=== PATIENT | female | born 1990 | race Caucasian/White ===

== ENCOUNTER 2017-06-22 00:30 | Inpatient (IN) | payer BC ==
--- NOTE | 2017-06-21 08:48 | PCM.LDHP ---
L&D History of Present Illness - General Date of Service: 06/21/17 Admit Problem/Dx: Admission Diagnosis/Problem Admission Diagnosis/Problem Source of Information: Patient History Limitations: Reports: No Limitations - History of Present Illness Introduction:: 27-year-old 000 BARB 06/28/17at 39 weeks today tomorrow at date of procedure 39 weeks and 1 day estimated gestational age. Breech presentation. Patient has had thorough counseling concerning possible attempted version with risk of comorbidity and comortality, versus proceeding with section. Ultrasound this morning confirmed breech presentation. horough conversation and discussion concerning version risk associated with same and induction risks associated with same and section with associated risk. Group B strep negative. A+. Improves with: Reports: None Worsens with: Reports: None Associated Symptoms: Reports: N Past Medical History : 1 Para: 0 (0000) H&P Review of Systems - Review of Systems: Review Of Systems: See Below General: Reports: No Symptoms HEENT: Reports: No Symptoms Pulmonary: Reports: No Symptoms Cardiovascular: Reports: No Symptoms Gastrointestinal: Reports: No Symptoms Genitourinary: Reports: No Symptoms Musculoskeletal: Reports: No Symptoms Skin: Reports: No Symptoms Psychiatric: Reports: No Symptoms Neurological: Reports: No Symptoms Hematologic/Lymphatic: Reports: No Symptoms Immunologic: Reports: No Symptoms L&D Exam - Exam Exam: See Below - OB Specific Fundal Height In cm: 39 Movement: Active Heart Tones: Present Heart Tones per Min: 135 - Exam General: Alert, Oriented HEENT: Conjunctiva Clear Neck: Supple, Trachea Midline Lungs: Clear to Auscultation, Normal Respiratory Effort Cardiovascular: Regular Rate, Regular Rhythm GI/Abdominal Exam: Normal Bowel Sounds, Soft, Non-Tender Genitourinary: Normal external exam, Normal bimanual exam, Normal speculum exam Extremities: Normal Inspection, Normal Range of Motion, Non-Tender, No Pedal Edema, Normal Capillary Refill Skin: Warm, Dry, Intact Neurological: Reflexes Equal Bilateral Psychiatric: Alert, Normal Affect, Normal Mood - Problem List (1) 39 weeks gestation of SNOMED Code(s): 36270935 ICD Code: Z3A.39 - 39 WEEKS GESTATION OF Status: Acute (2) Breech presentation SNOMED Code(s): 0188310 ICD Code: O32.1XX0 - MATERNAL CARE FOR BREECH PRESENTATION, UNSP Status: Acute Qualifiers: Fetus number: single or unspecified fetus Qualified Code(s): O32.1XX0 - Maternal care for breech presentation, not applicable or unspecified Problem List Initiated/Reviewed/Updated: No
[~2017-06-22 00:30] MED LIST: Citric Acid/Sodium Citrate Solution 30 ML Cup PO ONE; Metoclopramide 10 MG/2 ML SDV IVPUSH ONE; Sodium Chloride 0.9% 10 ML Syringe FLUSH PRN; ceFAZolin 2 GM in Premix Bag 1 BAG IV ONE
[2017-06-22] MEDS ORDERED: Metoclopramide 10 MG/2 ML SDV ONE (06:03)
[2017-06-22] MEDS ORDERED: Citric Acid/Sodium Citrate Solution 30 ML Cup ONE (06:03)
[2017-06-22] MEDS: Lactated Ringers 1,000 ML IV SCH ×3 (06:12→21:38)
[2017-06-22] MEDS ORDERED: Morphine PF 10 MG/10 ML SDV ONE (06:55)
[2017-06-22] MEDS ORDERED: Bupivacaine 0.5% 30 ML SDV ONE ×2 (07:00→07:01)
--- NOTE | 2017-06-22 07:00 | PCM.PREANE ---
Preanesthetic Assessment - Anesthesia/Transfusion/Family Hx Anesthesia History: Prior Anesthesia Without Reaction Family History of Anesthesia Reaction: No Transfusion History: No Prior Transfusion(s) - Review of Systems General: No Symptoms (preg), Night Sweats Pulmonary: No Symptoms Cardiovascular: No Symptoms Gastrointestinal: No Symptoms, Vomiting (gerd) Neurological: No Symptoms - Physical Assessment NPO Status Date: 06/21/17 NPO Status Time: 21:00 Pulse: 88 O2 Sat by Pulse Oximetry: 97 Respiratory Rate: 20 Blood Pressure: 107/70 Temperature: 97.6 F Height: 5 ft 7 in ASA Class: 2 Mental Status: Alert & Oriented x3 Airway Class: Mallampati = 1 Dentition: Reports: Normal Dentition Thyro-Mental Finger Breadths: 3 Mouth Opening Finger Breadths: 3 ROM/Head Extension: Full Lungs: Clear to Auscultation, Normal Respiratory Effort Cardiovascular: Regular Rate, Regular Rhythm - Lab Values: Laboratory Last Values WBC 9.25 K/mm3 (3.98-10.04) 06/22/17 05:50 RBC 3.79 M/mm3 (3.98-5.22) L 06/22/17 05:50 Hgb 12.2 gm/L (11.2-15.7) 06/22/17 05:50 Hct 35.2 % (34.1-44.9) 06/22/17 05:50 MCV 92.9 fl (79.4-94.8) 06/22/17 05:50 MCH 32.2 pg (25.6-32.2) 06/22/17 05:50 MCHC 34.7 g/dl (32.2-35.5) 06/22/17 05:50 RDW Std Deviation 40.8 fL (36.4-46.3) 06/22/17 05:50 Plt Count 151 K/mm3 (182-369) L 06/22/17 05:50 MPV 11.0 fl (9.4-12.3) 06/22/17 05:50 Neut % (Auto) 68.2 % (34.0-71.1) 06/22/17 05:50 Lymph % (Auto) 24.6 % (19.3-51.7) 06/22/17 05:50 Park % (Auto) 6.5 % (4.7-12.5) 06/22/17 05:50 Eos % (Auto) 0.5 (0.7-5.8) L 06/22/17 05:50 Baso % (Auto) 0.2 % (0.1-1.2) 06/22/17 05:50 Neut # (Auto) 6.30 K/mm3 (1.56-6.13) H 06/22/17 05:50 Lymph # (Auto) 2.28 K/mm3 (1.18-3.74) 06/22/17 05:50 Park # (Auto) 0.60 K/mm3 (0.24-0.36) H 06/22/17 05:50 Eos # (Auto) 0.05 K/mm3 (0.04-0.36) 06/22/17 05:50 Baso # (Auto) 0.02 K/mm3 (0.01-0.08) 06/22/17 05:50 Manual Slide Review Normal smear 06/22/17 05:50 Blood Type A POSITIVE 06/22/17 05:50 Gel Antibody Screen Negative 06/22/17 05:50 - Allergies Allergies/Adverse Reactions: Allergies Allergy/AdvReac Type Severity Reaction Status Date / Time No Known Allergies Allergy Verified 06/22/17 00:05 - Blood Blood Available: No - Acknowledgements Anesthesia Type Planned: Epidural Pt an Appropriate Candidate for the Planned Anesthesia: Yes Alternatives and Risks of Anesthesia Discussed w Pt/Guardian: Yes Pt/Guardian Understands and Agrees with Anesthesia Plan: Yes PreAnesthesia Questionnaire Cardiovascular History: Reports: None Respiratory History: Reports: None Gastrointestinal History: Reports: GERD : 1 (39 1 wek) Para: 0 - Past Surgical History HEENT Surgical History: Reports: Oral Surgery - History Comment History Comment: unisom for sleep and multivit - SUBSTANCE USE Smoking Status *Q: Never Smoker Tobacco Use Within Last Twelve Months: No Second Hand Smoke Exposure: No Days Per Week of Alcohol Use: 0 Recreational Drug Use History: No - CURRENT (IN HOUSE) MEDS Current Meds: Current Medications Lactated Ringer's (Ringers, Lactated) 1,000 mls @ 125 mls/hr IV ASDIRECTED AUBREY Last Admin: 06/22/17 06:12 Dose: 125 mls/hr Oxytocin 20 unit/ Lactated (Ringer's) 1,002 mls @ 500 mls/hr IV ASDIRECTED AUBREY Sodium Chloride (Saline Flush) 10 ml FLUSH ASDIRECTED PRN PRN Reason: Keep Vein Open Discontinued Medications Citric Acid/Sodium Citrate (Bicitra Solution) 30 ml PO ONETIME ONE Stop: 06/22/17 00:06 Last Admin: 06/22/17 06:11 Dose: 30 ml Citric Acid/Sodium Citrate (Bicitra Solution) Confirm Administered Dose 30 ml .ROUTE .STK-MED ONE Stop: 06/22/17 06:04 Last Admin: 06/22/17 06:12 Dose: Not Given Cefazolin Sodium/Dextrose 2 gm (/ Premix) 50 mls @ 100 mls/hr IV ONETIME ONE Stop: 06/22/17 00:34 Metoclopramide HCl (Reglan) 10 mg IVPUSH ONETIME ONE Stop: 06/22/17 00:06 Last Admin: 06/22/17 06:12 Dose: 10 mg Metoclopramide HCl (Reglan) Confirm Administered Dose 10 mg .ROUTE .STK-MED ONE Stop: 06/22/17 06:04 Last Admin: 06/22/17 06:12 Dose: Not Given Morphine Sulfate (Duramorph Pf) Confirm Administered Dose 10 mg .ROUTE .STK-MED ONE Stop: 06/22/17 06:56
[2017-06-22] MEDS ORDERED: fentaNYL 100 MCG/2 ML SDV ONE (07:02)
[2017-06-22] MEDS: fentaNYL 100 MCG/2 ML SDV EPIDUR PRN ×2 (07:23→18:54)
[2017-06-22] MEDS ORDERED: ePHEDrine 50 MG/ML SDV ONE ×2 (07:50→11:01)
[2017-06-22] MEDS ORDERED: Lactated Ringers 1,000 ML ONE ×2 (07:53→11:01)
[2017-06-22] MEDS ORDERED: Glycopyrrolate 0.2 MG/ML SDV ONE (07:55)
[2017-06-22] MEDS ORDERED: Nalbuphine 20 MG/1 ML Amp IVPUSH PRN (08:11)
[2017-06-22] MEDS ORDERED: Sodium Chloride 0.9% 10 ML Syringe FLUSH PRN (08:11)
[2017-06-22] MEDS ORDERED: Lidocaine 2% with EPINEPHrine 1:200,000 20 ML SDV ONE (08:12)
[2017-06-22] MEDS ORDERED: Misoprostol 25 MCG (1/4 of 100 MCG) Tab ONE (08:17)
[2017-06-22] MEDS: Misoprostol 25 MCG (1/4 of 100 MCG) Tab PO SCH ×3 (08:20→14:34)
--- NOTE | 2017-06-22 08:24 | PCM.SN ---
- Free Text/Narrative Note: At 0820 hrs. Cytotec placed cervix is closed, soft, long, posterior, vertex presentation now at -3 station
[2017-06-22] MEDS ORDERED: diphenhydrAMINE 50 MG/ML SDV IVPUSH PRN (08:25)
--- NOTE | 2017-06-22 09:00 | PCM.OPNOTE ---
- General Post-Op/Procedure Note Date of Surgery/Procedure: 06/22/17 Operative Procedure(s): External cephalic version Findings: in complete breech position with head on maternal left and spine on maternal right, heart rates 120s prior to procedure and 120s after procedure. Pre Op Diagnosis: Complete breech presentation at 39 weeks 1 day gestational age Post-Op Diagnosis: 39 weeks 1 day gestational age with successful cephalic version and infant in vertex presentation Anesthesia Technique: Epidural Primary Surgeon: Remi Lee Anesthesia Provider: Yayo Campuzano Tunneling Machine Operator: Ez Regalado Reason Tunneling Machine Operator Was Necessary: Standby assist for possible emergent section Role of Tunneling Machine Operator: Standby assistance for possible emergent section Pathology: None Fluid Replacement, Intraop: 2,000 Output, Urine Amount: 0 (Voided prior to procedure) EBL in mLs: 0 Complications: None Condition: Good Free Text/Narrative:: Procedure in detail: The patient was seen in the preoperative holding area and the risks, benefits and alternatives were again discussed with the patient and consents were reviewed. Patient was given an epidural for anesthesia. She was taken back to the operating room and placed in dorsal supine position with a left lateral tilt. heart tones were checked and they were in the 120s. An ultrasound was used to check position and it was noted that the infant was in complete breech position with head towards the maternal left and spine on maternal right. Lubricating jelly was applied over the entirety of the abdomen. The pelvis was then elevated out of the maternal pelvis using pressure just above the pubic symphysis. After the fetus was elevated out of the maternal pelvis pressure was applied behind the head to have the fetus rotated in a clockwise fashion. Pressure was applied for approximately 45 seconds and the heart tones were checked and noted to be in the 120s. Ultrasound was used to check for position and was found to be in vertex presentation. The cervix was checked and she was found to be closed/thick/floating. The head was unable to be palpated during cervical exam and ultrasound was used to reconfirm presentation and she was in vertex presentation. Patient was transported back to labor and delivery for induction of labor with plan to use Cytotec for initial induction agent. Anticipate vaginal delivery unless otherwise indicated.
[2017-06-22] MEDS ORDERED: Misoprostol 25 MCG (1/4 of 100 MCG) Tab VAG ONE (17:46)
[2017-06-22] MEDS: Bupivacaine/fentaNYL/NS 100 ML Bag EPIDUR SCH (18:53)
--- NOTE | 2017-06-22 20:51 | PCM.SN ---
- Free Text/Narrative Note: Bedside ultrasound performed showed fetus in vertex presentation. Cervical exam performed and cervical exam was 2 cm/80%/-2/soft/anterior. heart rate: 150s with moderate variability, positive accelerations, no decelerations Tocometry: Regular every 2 minutes Plan to transition to Pitocin for augmentation of labor once contractions have spaced out to every 3-5 minutes. Patient with epidural in place and working well. Anticipate vaginal delivery unless otherwise indicated. Remi Lee M.D. 8:51 PM 06/22/2017
[2017-06-23] MEDS: Ondansetron 4 MG/2 ML SDV IVPUSH PRN ×2 (01:24→06:44)
[2017-06-23] MEDS ORDERED: Morphine PF 10 MG/10 ML SDV ONE (01:47)
[2017-06-23] MEDS ORDERED: Lactated Ringers 0 ML ONE (01:47)
[2017-06-23] MEDS ORDERED: fentaNYL 100 MCG/2 ML SDV ONE (01:47)
[2017-06-23] MEDS ORDERED: ceFAZolin 1 GM Vial ONE (01:47)
[2017-06-23] MEDS ORDERED: Ondansetron 4 MG/2 ML SDV ONE (01:47)
[2017-06-23] MEDS ORDERED: Phenylephrine 1% 10 MG/ML SDV ONE (01:47)
[2017-06-23] MEDS ORDERED: Oxytocin 10 Units/1 ML SDV ONE (01:47)
[2017-06-23] MEDS ORDERED: Lidocaine 2% with EPINEPHrine 1:200,000 20 ML SDV ONE (01:47)
[2017-06-23] MEDS ORDERED: Ketorolac 30 MG/ML SDV ONE (01:47)
[2017-06-23] MEDS ORDERED: Bupivacaine 0.25% 10 ML SDV ONE (02:00)
[2017-06-23] MEDS ORDERED: Lidocaine 1.5% with EPINEPHrine 1:200,000 5 ML Amp ONE (02:00)
[2017-06-23] MEDS: Bupivacaine/fentaNYL/NS 100 ML Bag EPIDUR SCH ×2 (03:32→12:24)
[2017-06-23] MEDS: Lactated Ringers 1,000 ML IV SCH ×2 (03:38→12:24)
[2017-06-23] MEDS ORDERED: Famotidine 20 MG Tab PO ONE (04:15)
[2017-06-23] MEDS ORDERED: Oxytocin/Lactated Ringers 10 UNIT/1,000 ML BAG IV SCH ×2 (05:30→16:55)
[2017-06-23] MEDS ORDERED: Ondansetron 4 MG/2 ML SDV IVPUSH PRN (06:31)
--- NOTE | 2017-06-23 13:12 | PCM.PNLD ---
Labor Progress Note - VS & Meds Vital Signs: Last Vital Signs Temp 36.4 C 06/22/17 07:01 Pulse 88 06/22/17 07:01 Resp 20 06/22/17 07:01 BP 107/70 06/22/17 07:01 Pulse Ox 97 06/22/17 07:01 Active Medications: Current Medications Diphenhydramine HCl (Benadryl) 25 mg IVPUSH Q6H PRN PRN Reason: pruritis Famotidine (Pepcid) 20 mg PO BID AUBREY Fentanyl (Sublimaze) 100 mcg EPIDUR Q3H PRN PRN Reason: Pain Last Admin: 06/22/17 18:54 Dose: 100 mcg Fentanyl/Bupivacaine HCl (Fentanyl/Bupivacaine/Ns 2 Mcg-0.125% 100 Ml) 100 ml EPIDUR ASDIRECTED AUBREY Last Admin: 06/23/17 12:24 Dose: 100 ml Lactated Ringer's (Ringers, Lactated) 1,000 mls @ 125 mls/hr IV ASDIRECTED AUBREY Last Admin: 06/23/17 03:38 Dose: 125 mls/hr Oxytocin 20 unit/ Lactated (Ringer's) 1,002 mls @ 500 mls/hr IV ASDIRECTED AUBREY Lactated Ringer's (Ringers, Lactated) 1,000 mls @ 40 mls/hr IV ASDIRECTED AUBREY Last Admin: 06/23/17 12:24 Dose: 125 mls/hr Oxytocin/Lactated Ringer's (Pitocin In Lr 10 Units/1,000 Ml) 10 unit in 1,000 mls @ 12 mls/hr IV TITRATE AUBREY; 2 MUNITS/MIN PRN Reason: Protocol Last Admin: 06/23/17 06:51 Dose: 2 munits/min, 12 mls/hr Nalbuphine HCl (Nubain) 10 mg IVPUSH Q3H PRN PRN Reason: Pain Ondansetron HCl (Zofran) 4 mg IVPUSH ONETIME PRN PRN Reason: Nausea/Vomiting Last Admin: 06/23/17 06:44 Dose: 4 mg Ondansetron HCl (Zofran) 4 mg IVPUSH Q4H PRN PRN Reason: Nausea/Vomiting Sodium Chloride (Saline Flush) 10 ml FLUSH ASDIRECTED PRN PRN Reason: Keep Vein Open Sodium Chloride (Saline Flush) 10 ml FLUSH ASDIRECTED PRN PRN Reason: Keep Vein Open Discontinued Medications Bupivacaine HCl (Marcaine 0.5%) Confirm Administered Dose 30 ml .ROUTE .STK-MED ONE Stop: 06/22/17 07:01 Bupivacaine HCl (Marcaine 0.5%) Confirm Administered Dose 30 ml .ROUTE .STK-MED ONE Stop: 06/22/17 07:02 Cefazolin Sodium (Ancef) Confirm Administered Dose 2 gm .ROUTE .STK-MED ONE Stop: 06/23/17 01:48 Citric Acid/Sodium Citrate (Bicitra Solution) 30 ml PO ONETIME ONE Stop: 06/22/17 00:06 Last Admin: 06/22/17 06:11 Dose: 30 ml Citric Acid/Sodium Citrate (Bicitra Solution) Confirm Administered Dose 30 ml .ROUTE .STK-MED ONE Stop: 06/22/17 06:04 Last Admin: 06/22/17 06:12 Dose: Not Given Ephedrine Sulfate (Ephedrine Sulfate) Confirm Administered Dose 50 mg .ROUTE .STK-MED ONE Stop: 06/22/17 07:51 Ephedrine Sulfate (Ephedrine Sulfate) Confirm Administered Dose 50 mg .ROUTE .STK-MED ONE Stop: 06/22/17 11:02 Famotidine (Pepcid) 20 mg PO ONETIME ONE Stop: 06/23/17 04:16 Last Admin: 06/23/17 04:15 Dose: 20 mg Fentanyl (Sublimaze) Confirm Administered Dose 100 mcg .ROUTE .STK-MED ONE Stop: 06/22/17 07:03 Fentanyl (Sublimaze) Confirm Administered Dose 100 mcg .ROUTE .STK-MED ONE Stop: 06/23/17 01:48 Glycopyrrolate (Robinul) Confirm Administered Dose 0.2 mg .ROUTE .STK-MED ONE Stop: 06/22/17 07:56 Cefazolin Sodium/Dextrose 2 gm (/ Premix) 50 mls @ 100 mls/hr IV ONETIME ONE Stop: 06/22/17 00:34 Lactated Ringer's (Ringers, Lactated) Confirm Administered Dose 1,000 mls @ as directed .ROUTE .STK-MED ONE Stop: 06/22/17 07:54 Lactated Ringer's (Ringers, Lactated) Confirm Administered Dose 1,000 mls @ as directed .ROUTE .STK-MED ONE Stop: 06/22/17 11:02 Lactated Ringer's (Ringers, Lactated) Confirm Administered Dose 2,000 mls @ as directed .ROUTE .STK-MED ONE Stop: 06/23/17 01:48 Ketorolac Tromethamine (Toradol) Confirm Administered Dose 30 mg .ROUTE .STK- MED ONE Stop: 06/23/17 01:48 Lidocaine/Epinephrine (Xylocaine-Mpf 2%-Epi 1:200,000) Confirm Administered Dose 20 ml .ROUTE .STK-MED ONE Stop: 06/22/17 08:13 Lidocaine/Epinephrine (Xylocaine-Mpf 2%-Epi 1:200,000) Confirm Administered Dose 20 ml .ROUTE .STK-MED ONE Stop: 06/23/17 01:48 Metoclopramide HCl (Reglan) 10 mg IVPUSH ONETIME ONE Stop: 06/22/17 00:06 Last Admin: 06/22/17 06:12 Dose: 10 mg Metoclopramide HCl (Reglan) Confirm Administered Dose 10 mg .ROUTE .STK-MED ONE Stop: 06/22/17 06:04 Last Admin: 06/22/17 06:12 Dose: Not Given Misoprostol (Cytotec) 25 mcg PO Q3H AUBREY Stop: 06/22/17 14:16 Last Admin: 06/22/17 14:34 Dose: 25 mcg Misoprostol (Cytotec) Confirm Administered Dose 25 mcg .ROUTE .STK-MED ONE Stop: 06/22/17 08:18 Last Admin: 06/22/17 11:31 Dose: Not Given Misoprostol (Cytotec) 25 mcg VAG ONETIME ONE Stop: 06/22/17 17:47 Last Admin: 06/22/17 17:54 Dose: 25 mcg Morphine Sulfate (Duramorph Pf) Confirm Administered Dose 10 mg .ROUTE .STK-MED ONE Stop: 06/22/17 06:56 Morphine Sulfate (Duramorph Pf) Confirm Administered Dose 10 mg .ROUTE .STK-MED ONE Stop: 06/23/17 01:48 Ondansetron HCl (Zofran) Confirm Administered Dose 4 mg .ROUTE .STK-MED ONE Stop: 06/23/17 01:48 Oxytocin (Pitocin) Confirm Administered Dose 10 unit .ROUTE .STK-MED ONE Stop: 06/23/17 01:48 Phenylephrine HCl (Kwaku-Synephrine) Confirm Administered Dose 10 mg .ROUTE .STK- MED ONE Stop: 06/23/17 01:48 - Uterine Contractions Uterine Monitoring Mode: External [place] Contraction Frequency (min): 2-4 Contraction Duration (sec): 60 Contraction Intensity: Moderate to Strong Uterine Resting Tone: Soft - Monitoring Monitor Mode: Doppler/Auscultation Heart Rate (FHR) Baseline: 150 Heart Rate (FHR) Variability: Moderate (6-25 bmp) Accelerations: Present, 15x15 Decelerations: Variable Strip Review: Category II - Vaginal Exam Dilation (cm): 6 Effacement (Percent): 90 Station: -2 Cervical Position: Anterior - Labor Progress (Free Text) Labor Progress: Continues with good progress of labor. Artificial rupture of membranes performed with return of clear fluid at 1100. Continue on pitocin. Continue monitoring of . Anticipate vaginal delivery unless otherwise indicated.
--- NOTE | 2017-06-23 16:17 | PCM.DEL ---
L & D Note - General Info Date of Service: 06/23/17 Mother's Due Date: 06/28/17 - Delivery Note Labor: Augmented by Oxytocin Cervical Ripening Method: Oxytocin Delivery Outcome: Livebirth Delivery Method: Spontaneous Vaginal Delivery-Single Presentation: Right Occiput Anterior (GRAHAM) Nuchal Cord: Present Anesthesia Type: Epidural Amniotic Fluid Description: Meconium Stained Episiotomy Type: None Laceration: 3rd Degree (Partial, repaired with interrupted figure of 8 sutures with 2-0 vicryl and with 3-0 Vicryl in normal fashion, right labial abrasion repaired with 4-0 Vicryl) Suture type: Vicryl Suture size: 2-0 Placenta: Intact, Spontaneous Cord: 3 Vessels Estimated Blood Loss: 350 Resuscitation Needed: Yes : Suctioned, Bulb Syringe, Stimulated, Warmed, Navarro Used, Warmer Used Provider: Ez Regalado Score 1 min: 6 Score 5 min: 9 Second Stage Interventions: Reports: Pushing Effectively, Pushing, Knee Chest Position, Pushing, Pulls Own Legs Back Delivery Comments (Free Text/Narrative):: Stage I: Abiola Cannon was admitted for induction of labor following a successful external cephalic version performed on 06/22/2017. On admission her cervix was closed. She was GBS negative. She was started on Cytotec 25 mcg and received a total of 4 doses. After placement of the fourth dose she continued to contract regularly without augmentation until morning of 06/23/2017. She was given an epidural for anesthesia. She had artificial rupture of membranes with clear fluid. She progressed complete and pushing. During pushing she developed meconium stained fluid and the technical architect was notified. Stage II: On 06/23/2017 she had a normal vaginal delivery of a live female at 1524. Apgars of 6 & 9. Weight of 3150 g (6 lbs 15 oz). Length of 19 and 3/4 inches. There was a single nuchal cord that she delivered through. was delivered in GRAHAM position. The cord was doubly clamped and cut by father of baby. Infant was placed on mother's abdomen and then taken to warmer for further resuscitation. The delivery was attended by Dr. Campos due to meconium staining of the fluid. Stage III: She had a spontaneous delivery of an intact placenta in Casandra presentation. Three vessel cord. She was given pitocin and fundal massage. She had a partial third-degree midline laceration that was repaired with interrupted sutures of 2-0 Vicryl and the remainder of the laceration was repaired in normal fashion using 3-0 Vicryl. There was a right labial abrasion that was repaired in running subcuticular fashion using 4-0 Vicryl. There is old small left labial abrasion that was hemostatic and not repaired.. Mom and baby were stable to recovery. EBL of 350 mL. Remi Lee MD 4:16 PM 06/23/2017 - Patient Data Vitals - Most Recent: Last Vital Signs Temp 36.4 C 06/22/17 07:01 Pulse 88 06/22/17 07:01 Resp 20 06/22/17 07:01 BP 107/70 06/22/17 07:01 Pulse Ox 97 06/22/17 07:01 Weight - Most Recent: 73.482 kg Med Orders - Current: Current Medications Diphenhydramine HCl (Benadryl) 25 mg IVPUSH Q6H PRN PRN Reason: pruritis Famotidine (Pepcid) 20 mg PO BID AUBREY Fentanyl (Sublimaze) 100 mcg EPIDUR Q3H PRN PRN Reason: Pain Last Admin: 06/22/17 18:54 Dose: 100 mcg Fentanyl/Bupivacaine HCl (Fentanyl/Bupivacaine/Ns 2 Mcg-0.125% 100 Ml) 100 ml EPIDUR ASDIRECTED [facility] Last Admin: 06/23/17 12:24 Dose: 100 ml Lactated Ringer's (Ringers, Lactated) 1,000 mls @ 125 mls/hr IV ASDIRECTED AUBREY Last Admin: 06/23/17 03:38 Dose: 125 mls/hr Oxytocin 20 unit/ Lactated (Ringer's) 1,002 mls @ 500 mls/hr IV ASDIRECTED AUBREY Lactated Ringer's (Ringers, Lactated) 1,000 mls @ 40 mls/hr IV ASDIRECTED AUBREY Last Admin: 06/23/17 12:24 Dose: 125 mls/hr Oxytocin/Lactated Ringer's (Pitocin In Lr 10 Units/1,000 Ml) 10 unit in 1,000 mls @ 12 mls/hr IV TITRATE AUBREY; 2 MUNITS/MIN PRN Reason: Protocol Last Admin: 06/23/17 06:51 Dose: 2 munits/min, 12 mls/hr Nalbuphine HCl (Nubain) 10 mg IVPUSH Q3H PRN PRN Reason: Pain Ondansetron HCl (Zofran) 4 mg IVPUSH ONETIME PRN PRN Reason: Nausea/Vomiting Last Admin: 06/23/17 06:44 Dose: 4 mg Ondansetron HCl (Zofran) 4 mg IVPUSH Q4H PRN PRN Reason: Nausea/Vomiting Sodium Chloride (Saline Flush) 10 ml FLUSH ASDIRECTED PRN PRN Reason: Keep Vein Open Sodium Chloride (Saline Flush) 10 ml FLUSH ASDIRECTED PRN PRN Reason: Keep Vein Open Discontinued Medications Bupivacaine HCl (Marcaine 0.5%) Confirm Administered Dose 30 ml .ROUTE .STK-MED ONE Stop: 06/22/17 07:01 Bupivacaine HCl (Marcaine 0.5%) Confirm Administered Dose 30 ml .ROUTE .STK-MED ONE Stop: 06/22/17 07:02 Cefazolin Sodium (Ancef) Confirm Administered Dose 2 gm .ROUTE .STK-MED ONE Stop: 06/23/17 01:48 Citric Acid/Sodium Citrate (Bicitra Solution) 30 ml PO ONETIME ONE Stop: 06/22/17 00:06 Last Admin: 06/22/17 06:11 Dose: 30 ml Citric Acid/Sodium Citrate (Bicitra Solution) Confirm Administered Dose 30 ml .ROUTE .STK-MED ONE Stop: 06/22/17 06:04 Last Admin: 06/22/17 06:12 Dose: Not Given Ephedrine Sulfate (Ephedrine Sulfate) Confirm Administered Dose 50 mg .ROUTE .STK-MED ONE Stop: 06/22/17 07:51 Ephedrine Sulfate (Ephedrine Sulfate) Confirm Administered Dose 50 mg .ROUTE .STK-MED ONE Stop: 06/22/17 11:02 Famotidine (Pepcid) 20 mg PO ONETIME ONE Stop: 06/23/17 04:16 Last Admin: 06/23/17 04:15 Dose: 20 mg Fentanyl (Sublimaze) Confirm Administered Dose 100 mcg .ROUTE .STK-MED ONE Stop: 06/22/17 07:03 Fentanyl (Sublimaze) Confirm Administered Dose 100 mcg .ROUTE .STK-MED ONE Stop: 06/23/17 01:48 Glycopyrrolate (Robinul) Confirm Administered Dose 0.2 mg .ROUTE .STK-MED ONE Stop: 06/22/17 07:56 Cefazolin Sodium/Dextrose 2 gm (/ Premix) 50 mls @ 100 mls/hr IV ONETIME ONE Stop: 06/22/17 00:34 Lactated Ringer's (Ringers, Lactated) Confirm Administered Dose 1,000 mls @ as directed .ROUTE .STK-MED ONE Stop: 06/22/17 07:54 Lactated Ringer's (Ringers, Lactated) Confirm Administered Dose 1,000 mls @ as directed .ROUTE .STK-MED ONE Stop: 06/22/17 11:02 Lactated Ringer's (Ringers, Lactated) Confirm Administered Dose 2,000 mls @ as directed .ROUTE .STK-MED ONE Stop: 06/23/17 01:48 Ketorolac Tromethamine (Toradol) Confirm Administered Dose 30 mg .ROUTE .STK- MED ONE Stop: 06/23/17 01:48 Lidocaine/Epinephrine (Xylocaine-Mpf 2%-Epi 1:200,000) Confirm Administered Dose 20 ml .ROUTE .STK-MED ONE Stop: 06/22/17 08:13 Lidocaine/Epinephrine (Xylocaine-Mpf 2%-Epi 1:200,000) Confirm Administered Dose 20 ml .ROUTE .STK-MED ONE Stop: 06/23/17 01:48 Metoclopramide HCl (Reglan) 10 mg IVPUSH ONETIME ONE Stop: 06/22/17 00:06 Last Admin: 06/22/17 06:12 Dose: 10 mg Metoclopramide HCl (Reglan) Confirm Administered Dose 10 mg .ROUTE .STK-MED ONE Stop: 06/22/17 06:04 Last Admin: 06/22/17 06:12 Dose: Not Given Misoprostol (Cytotec) 25 mcg PO Q3H AUBREY Stop: 06/22/17 14:16 Last Admin: 06/22/17 14:34 Dose: 25 mcg Misoprostol (Cytotec) Confirm Administered Dose 25 mcg .ROUTE .STK-MED ONE Stop: 06/22/17 08:18 Last Admin: 06/22/17 11:31 Dose: Not Given Misoprostol (Cytotec) 25 mcg VAG ONETIME ONE Stop: 06/22/17 17:47 Last Admin: 06/22/17 17:54 Dose: 25 mcg Morphine Sulfate (Duramorph Pf) Confirm Administered Dose 10 mg .ROUTE .STK-MED ONE Stop: 06/22/17 06:56 Morphine Sulfate (Duramorph Pf) Confirm Administered Dose 10 mg .ROUTE .STK-MED ONE Stop: 06/23/17 01:48 Ondansetron HCl (Zofran) Confirm Administered Dose 4 mg .ROUTE .STK-MED ONE Stop: 06/23/17 01:48 Oxytocin (Pitocin) Confirm Administered Dose 10 unit .ROUTE .STK-MED ONE Stop: 06/23/17 01:48 Phenylephrine HCl (Kwaku-Synephrine) Confirm Administered Dose 10 mg .ROUTE .STK- MED ONE Stop: 06/23/17 01:48 - Problem List & Annotations (1) Vaginal delivery SNOMED Code(s): 787097876 Code(s): O80 - ENCOUNTER FOR FULL-TERM UNCOMPLICATED DELIVERY Status: Acute Current Visit: Yes (2) Third degree laceration of perineum during delivery, SNOMED Code(s): 832367360 Code(s): O70.20 - THIRD DEGREE PERINEAL LACERATION DURING DELIVERY, UNSP Status: Acute Current Visit: Yes (3) Labial abrasion, delivered, current hospitalization SNOMED Code(s): 567106991 Code(s): O71.82 - OTHER SPECIFIED TRAUMA TO PERINEUM AND VULVA Status: Acute Current Visit: Yes (4) Meconium stained amniotic fluid, delivered, current hospitalization SNOMED Code(s): 804426712 Code(s): O77.0 - LABOR AND DELIVERY COMPLICATED BY MECONIUM IN AMNIOTIC FLUID Status: Acute Current Visit: Yes (5) 39 weeks gestation of SNOMED Code(s): 28728847 Code(s): Z3A.39 - 39 WEEKS GESTATION OF Status: Acute Current Visit: Yes (6) Cephalic version antepartum SNOMED Code(s): 60388701, 08707591, 56609688 Code(s): VHS4717 - Status: Acute Current Visit: No - Problem List Review Problem List Initiated/Reviewed/Updated: Yes - My Orders Last 24 Hours: My Active Orders 06/23/17 05:30 Oxytocin/Lactated Ringers [Pitocin in LR 10 Units/1,000 ML] 10 unit in 1,000 ml IV TITRATE 06/23/17 06:31 Ondansetron [Zofran] 4 mg IVPUSH Q4H PRN 06/23/17 16:04 Patient Status Manage Transfer [TRANSFER] Routine 06/23/17 21:00 Famotidine [Pepcid] 20 mg PO BID - Plan Plan:: Admit to inpatient Continue Pitocin and lactated Ringer's until tolerating regular diet and per unit protocol Patient plans to breast-feed Monitor lochia Monitor vital signs Anticipate discharge on day #1 or 2
[2017-06-23] MEDS ORDERED: Acetaminophen 325 MG Tab PO PRN (16:55)
[2017-06-23] MEDS ORDERED: Hydrocortisone Acetate 25 MG Supp RECTAL PRN (16:55)
[2017-06-23] MEDS ORDERED: Docusate Sodium 100 MG Cap PO PRN (16:55)
[2017-06-23] MEDS ORDERED: Benzocaine/Menthol 20%-0.5% Spray 56 GM Canister TOP PRN (16:55)
[2017-06-23] MEDS ORDERED: Lactated Ringers 1,000 ML IV SCH (16:55)
[2017-06-23] MEDS ORDERED: Witch Hazel Medicated Pads 100/Jar TOP PRN (16:55)
[2017-06-23] MEDS ORDERED: Lanolin 100% Cream 7 GM Tube TOP PRN (16:55)
[2017-06-23] MEDS: Ibuprofen 600 MG Tab PO PRN ×2 (17:40→22:13)
[2017-06-23] MEDS ORDERED: Famotidine 20 MG Tab PO SCH (21:00)
--- NOTE | 2017-06-24 09:05 | PCM.SN ---
- Free Text/Narrative Note: Post Progress Note PPD # 1 Subjective: Doing well overall. Ambulating without difficulty. Lochia minimal. Voiding without difficulty. Tolerating regular diet without nausea or vomiting. Pain controlled with oral medications. Breast feeding with minimal difficulty. Objective: Vitals: Vital Signs - 24 hr 06/23/17 20:23 Temperature 36.6 C Pulse, 68 Peripheral Respiratory 16 Rate Blood Pressure 104/57 L O2 Sat by Pulse 97 Oximetry Physical Exam General: Alert and oriented, no acute distress Lungs: Clear to auscultation bilaterally Heart: Regular rate and rhythm Abdomen: Soft, minimal appropriate tenderness, non-distended, fundus midline, nontender, and below the umbilicus Extremities: No edema ASSESSMENT: 27-year-old female G 1 P 1001 s/p normal vaginal delivery PPD #1 complicated by successful version PLAN: Doing well Breast feeding with minimal difficulty. Assist as needed Lochia minimal. Continue to monitor for appropriate lochia. Continue routine care Anticipate discharge home tomorrow ASHLIE MerazII I have seen and evaluated the patient with the student. I agree with the above note. Remi Lee MD 9:04 AM 06/24/2017
[2017-06-24] MEDS: Ibuprofen 600 MG Tab PO PRN ×3 (09:15→22:23)
[2017-06-24] MEDS: Prenatal Multivitamin with Calcium/Folic Acid/Iron Tab PO SCH (09:15)
--- NOTE | 2017-06-24 14:54 | PCM48HPAN ---
Post Anesthesia Note - EVALUATION WITHIN 48HRS OF ANESTHETIC Vital Signs in Normal Range: Yes Patient Participated in Evaluation: Yes Respiratory Function Stable: Yes Airway Patent: Yes Cardiovascular Function Stable: Yes Hydration Status Stable: Yes Pain Control Satisfactory: Yes Nausea and Vomiting Control Satisfactory: Yes Mental Status Recovered: Yes
--- NOTE | 2017-06-25 09:02 | PCM.SN ---
- Free Text/Narrative Note: Post Progress Note PPD # 2 Subjective: Doing well overall. Ambulating without difficulty. Lochia minimal. Voiding without difficulty. Tolerating minimal amount of regular diet without nausea or vomiting. Passing flatus without bowel movement yet. Pain controlled with oral medications. Breast feeding with bottle supplementation reporting some difficulty with breast-feeding. Reports that she is developing blisters and sores around her nipples. Objective: Vitals: Vital Signs - 24 hr 06/24/17 06/25/17 20:40 04:10 Temperature 36.2 C 36.6 C Pulse, 74 74 Peripheral Respiratory 20 16 Rate Blood Pressure 100/51 L 99/55 L O2 Sat by Pulse 96 95 Oximetry Physical Exam General: Alert and oriented, no acute distress Lungs: Clear to auscultation bilaterally Heart: Regular rate and rhythm Abdomen: Soft, minimal appropriate tenderness, non-distended, fundus midline, nontender, and one finger breadth below the umbilicus Extremities: No edema ASSESSMENT: 27-year-old female G 1 P 1001 s/p normal vaginal delivery PPD #2 complicated by successful version PLAN: Doing well Breast feeding with bottle supplementation with some difficulty with feeding. Reports that she is working with the nurses. Assist as needed. Lochia minimal. Continue to monitor for appropriate lochia. Continue routine care Anticipate discharge home today Remi Lee MD 8:59 AM 06/25/2017
--- NOTE | 2017-06-25 09:08 | PCM.DCSUM1 ---
Discharge Summary - Hospital Course Free Text/Narrative:: Stage I: Abiola Cannon was admitted for induction of labor following a successful external cephalic version performed on 06/22/2017. On admission her cervix was closed. She was GBS negative. She was started on Cytotec 25 mcg and received a total of 4 doses. After placement of the fourth dose she continued to contract regularly without augmentation until morning of 06/23/2017. She was given an epidural for anesthesia. She had artificial rupture of membranes with clear fluid. She progressed complete and pushing. During pushing she developed meconium stained fluid and the biological inspector was notified. Stage II: On 06/23/2017 she had a normal vaginal delivery of a live female at 1524. Apgars of 6 & 9. Weight of 3150 g (6 lbs 15 oz). Length of 19 and 3/4 inches. There was a single nuchal cord that she delivered through. was delivered in GRAHAM position. The cord was doubly clamped and cut by father of baby. was placed on mother's abdomen and then taken to warmer for further resuscitation. The delivery was attended by Dr. Campos due to meconium staining of the fluid. Stage III: She had a spontaneous delivery of an intact placenta in [place] presentation. Three vessel cord. She was given pitocin and fundal massage. She had a partial third-degree midline laceration that was repaired with interrupted sutures of 2-0 Vicryl and the remainder of the laceration was repaired in normal fashion using 3-0 Vicryl. There was a right labial abrasion that was repaired in running subcuticular fashion using 4-0 Vicryl. There is old small left labial abrasion that was hemostatic and not repaired.. Mom and baby were stable to recovery. EBL of 350 mL. HPI Initial Comments: Stage I: Abiola Cannon was admitted for induction of labor following a successful external cephalic version performed on 06/22/2017. On admission her cervix was closed. She was GBS negative. She was started on Cytotec 25 mcg and received a total of 4 doses. After placement of the fourth dose she continued to contract regularly without augmentation until morning of 06/23/2017. She was given an epidural for anesthesia. She had artificial rupture of membranes with clear fluid. She progressed complete and pushing. During pushing she developed meconium stained fluid and the biological inspector was notified. Stage II: On 06/23/2017 she had a normal vaginal delivery of a live female infant at 1524. Apgars of 6 & 9. Weight of 3150 g (6 lbs 15 oz). Length of 19 and 3/4 inches. There was a single nuchal cord that she delivered through. Infant was delivered in GRAHAM position. The cord was doubly clamped and cut by father of baby. was placed on mother's abdomen and then taken to warmer for further resuscitation. The delivery was attended by Dr. Campos due to meconium staining of the fluid. Stage III: She had a spontaneous delivery of an intact placenta in [place]andra presentation. Three vessel cord. She was given pitocin and fundal massage. She had a partial third-degree midline laceration that was repaired with interrupted sutures of 2-0 Vicryl and the remainder of the laceration was repaired in normal fashion using 3-0 Vicryl. There was a right labial abrasion that was repaired in running subcuticular fashion using 4-0 Vicryl. There is old small left labial abrasion that was hemostatic and not repaired.. Mom and baby were stable to recovery. EBL of 350 mL. Brief History: Stage I: Abiola Cannon was admitted for induction of labor following a successful external cephalic version performed on 06/22/2017. On admission her cervix was closed. She was GBS negative. She was started on Cytotec 25 mcg and received a total of 4 doses. After placement of the fourth dose she continued to contract regularly without augmentation until morning of 06/23/2017. She was given an epidural for anesthesia. She had artificial rupture of membranes with clear fluid. She progressed complete and pushing. During pushing she developed meconium stained fluid and the biological inspector was notified. Stage II: On 06/23/2017 she had a normal vaginal delivery of a live female infant at 1524. Apgars of 6 & 9. Weight of 3150 g (6 lbs 15 oz). Length of 19 and 3/4 inches. There was a single nuchal cord that she delivered through. was delivered in GRAHAM position. The cord was doubly clamped and cut by father of baby. Infant was placed on mother's abdomen and then taken to warmer for further resuscitation. The delivery was attended by Dr. Campos due to meconium staining of the fluid. Stage III: She had a spontaneous delivery of an intact placenta in [place]andra presentation. Three vessel cord. She was given pitocin and fundal massage. She had a partial third-degree midline laceration that was repaired with interrupted sutures of 2-0 Vicryl and the remainder of the laceration was repaired in normal fashion using 3-0 Vicryl. There was a right labial abrasion that was repaired in running subcuticular fashion using 4-0 Vicryl. There is old small left labial abrasion that was hemostatic and not repaired.. Mom and baby were stable to recovery. EBL of 350 mL. - Discharge Data Discharge Date: 06/25/17 Discharge Disposition: Home, Self-Care 01 Condition: Good - Discharge Diagnosis/Problem(s) (1) Vaginal delivery SNOMED Code(s): 157256562 ICD Code: O80 - ENCOUNTER FOR FULL-TERM UNCOMPLICATED DELIVERY Status: Acute Current Visit: Yes (2) Third degree laceration of perineum during delivery, SNOMED Code(s): 773511951 ICD Code: O70.20 - THIRD DEGREE PERINEAL LACERATION DURING DELIVERY, UNSP Status: Acute Current Visit: Yes (3) Labial abrasion, delivered, current hospitalization SNOMED Code(s): 625129884 ICD Code: O71.82 - OTHER SPECIFIED TRAUMA TO PERINEUM AND VULVA Status: Acute Current Visit: Yes (4) Meconium stained amniotic fluid, delivered, current hospitalization SNOMED Code(s): 531510360 ICD Code: O77.0 - LABOR AND DELIVERY COMPLICATED BY MECONIUM IN AMNIOTIC FLUID Status: Acute Current Visit: Yes (5) 39 weeks gestation of SNOMED Code(s): 58311120 ICD Code: Z3A.39 - 39 WEEKS GESTATION OF Status: Acute Current Visit: Yes (6) Cephalic version antepartum SNOMED Code(s): 13861904, 47094721, 49387790 ICD Code: [id number] - Status: Acute Current Visit: No - Patient Summary/Data Operative Procedure(s) Performed: External cephalic version Complications: Partial third-degree laceration repaired with interrupted figure- of-eight sutures with 2-0 Vicryl Consults: None Hospital Course: Abiola Cannon was admitted for external cephalic version in the setting of breech presentation. She had a successful external cephalic version on 06/22/2017. She then was transferred to labor and delivery and started on an induction with Cytotec. On admission her cervix was closed. She was GBS negative. She was given a total of 4 doses of Cytotec. She was given an epidural for anesthesia. She had and artificial rupture of membranes with clear fluid. She progressed to complete and began pushing. During pushing she developed light meconium stained fluid. On 06/23/2017 she had a normal vaginal delivery of a live female infant at 1524. Apgars of 6 & 9. Weight of 3150 g (6 lbs. 15 oz.). Length of 19 3/4 inches. Her delivery was complicated by a partial third-degree laceration that was repaired with interrupted [id number] sutures with 2-0 Vicryl. Her course was uneventful. Her pain was well controlled and she had minimal lochia. She was ambulating, tolerating a regular diet and voiding normally. She was breast feeding and supplementing with bottle feeding. She was afebrile and her hematocrit was 35.2 on admission. She desired to be discharged home on the morning of PPD #2. Her blood type is A positive. - Patient Instructions Diet: Regular Diet as Tolerated Activity: As Tolerated Activity, Other: Nothing in the vagina for 6 weeks Driving: May Drive Today Showering/Bathing: May Shower Wound/Incision Care: Keep Operative Site/Wound Site Clean and Dry Notify Provider of: Fever, Increased Pain, Swelling and Redness, Drainage, Nausea and/or Vomiting Other/Special Instructions: Notify provider if having heavy vaginal bleeding enough to soak a pad in less than an hour for 3-4 hours - Discharge Plan Prescriptions/Med Rec: Magnesium Hydroxide [Milk of Magnesia] 30 ml PO BID PRN #1 bottle PRN Reason: Constipation Home Medications: Home Meds Acetaminophen [Tylenol] 650 mg PO Q6H PRN tablet 06/25/17 [Rx] Benzocaine/Menthol [Dermoplast Pain Relief [place]] 1 spray TOP ASDIRECTED PRN canister 06/25/17 [Rx] Docusate Sodium [Colace] 100 mg PO BID PRN cap 06/25/17 [Rx] Hydrocortisone Acetate [Anucort-HC] 25 mg RECTAL BID PRN supp 06/25/17 [Rx] Ibuprofen [IJD: Ibuprofen] 600 mg PO Q6H PRN tablet 06/25/17 [Rx] Lanolin [Lansinoh HPA] 1 applic TOP ASDIRECTED PRN tube 06/25/17 [Rx] Magnesium Hydroxide [Milk of Magnesia] 30 ml PO BID PRN #1 bottle 06/25/17 [Rx] Vit with Ca/FA/Iron [ Plus Iron] 1 each PO DAILY tablet [Rx] Patient Handouts: Exclusive , Home Care Instructions for Mom, Challenges and Solutions, Care of a Perineal Tear, Care After Vaginal Delivery Referrals: Ez Regalado MD [Primary Care Provider] - (Follow-up with Dr. Lee or Dr. Regalado in 2-3 weeks or earlier as needed for visit.) - Discharge Summary/Plan Comment DC Time >30 min.: No - Patient Data Vitals - Most Recent: Last Vital Signs Temp 36.6 C 06/25/17 04:10 Pulse 74 06/25/17 04:10 Resp 16 06/25/17 04:10 BP 99/55 L 06/25/17 04:10 Pulse Ox 95 06/25/17 04:10 Weight - Most Recent: 73.482 kg Med Orders - Current: Current Medications Acetaminophen (Tylenol) 650 mg PO Q6H PRN PRN Reason: mild pain or fever Benzocaine/Menthol (Dermoplast Pain Relief [place]) 0 gm TOP ASDIRECTED PRN PRN Reason: Perineal Comfort Measure Last Admin: 06/23/17 17:40 Dose: 1 canister Docusate Sodium (Colace) 100 mg PO BID PRN PRN Reason: Constipation Emollient Ointment (Lansinoh Hpa) 0 gm TOP ASDIRECTED PRN PRN Reason: Sore Nipples Last Admin: 06/25/17 00:12 Dose: 1 applic Hydrocortisone Acetate (Anucort-Hc) 25 mg RECTAL BID PRN PRN Reason: Hemorrhoid pain Lactated Ringer's (Ringers, Lactated) 1,000 mls @ 125 mls/hr IV ASDIRECTED AUBREY Oxytocin/Lactated Ringer's (Pitocin In Lr 10 Units/1,000 Ml) 10 unit in 1,000 mls @ 100 mls/hr IV TITRATE AUBREY PRN Reason: Protocol Ibuprofen (Motrin) 600 mg PO Q6H PRN PRN Reason: Mild pain or fever Last Admin: 06/24/17 22:23 Dose: 600 mg Prenat Multivit/Lyerly/Iron/Folic Ac ( Plus Iron) 1 each PO DAILY AUBREY Last Admin: 06/24/17 09:15 Dose: 1 each Witch Esther (Tucks) 1 pad TOP ASDIRECTED PRN PRN Reason: Hemorrhoid pain Last Admin: 06/23/17 17:40 Dose: 1 tub Discontinued Medications Bupivacaine HCl (Marcaine 0.5%) Confirm Administered Dose 30 ml .ROUTE .STK-MED ONE Stop: 06/22/17 07:01 Bupivacaine HCl (Marcaine 0.5%) Confirm Administered Dose 30 ml .ROUTE .STK-MED ONE Stop: 06/22/17 07:02 Bupivacaine HCl (Sensorcaine-Mpf 0.25%) 10 ml .ROUTE .STK-MED ONE Stop: 06/23/17 02:01 Cefazolin Sodium (Ancef) Confirm Administered Dose 2 gm .ROUTE .STK-MED ONE Stop: 06/23/17 01:48 Citric Acid/Sodium Citrate (Bicitra Solution) 30 ml PO ONETIME ONE Stop: 06/22/17 00:06 Last Admin: 06/22/17 06:11 Dose: 30 ml Citric Acid/Sodium Citrate (Bicitra Solution) Confirm Administered Dose 30 ml .ROUTE .STK-MED ONE Stop: 06/22/17 06:04 Last Admin: 06/22/17 06:12 Dose: Not Given Diphenhydramine HCl (Benadryl) 25 mg IVPUSH Q6H PRN PRN Reason: pruritis Ephedrine Sulfate (Ephedrine Sulfate) Confirm Administered Dose 50 mg .ROUTE .STK-MED ONE Stop: 06/22/17 07:51 Ephedrine Sulfate (Ephedrine Sulfate) Confirm Administered Dose 50 mg .ROUTE .STK-MED ONE Stop: 06/22/17 11:02 Famotidine (Pepcid) 20 mg PO BID AUBREY Famotidine (Pepcid) 20 mg PO ONETIME ONE Stop: 06/23/17 04:16 Last Admin: 06/23/17 04:15 Dose: 20 mg Fentanyl (Sublimaze) 100 mcg EPIDUR Q3H PRN PRN Reason: Pain Last Admin: 06/22/17 18:54 Dose: 100 mcg Fentanyl (Sublimaze) Confirm Administered Dose [address] ONE Stop: 06/22/17 07:03 Last Admin: 06/23/17 19:55 Dose: Not Given Fentanyl (Sublimaze) Confirm Administered Dose 100 mcg .ROUTE .[facility] ONE Stop: 06/23/17 01:48 Fentanyl/Bupivacaine HCl (Fentanyl/Bupivacaine/Ns 2 Mcg-0.125% 100 Ml) 100 ml EPIDUR ASDIRECTED [facility] Last Admin: 06/23/17 12:24 Dose: 100 ml Glycopyrrolate (Robinul) Confirm Administered Dose 0.2 mg .ROUTE .[facility] ONE Stop: 06/22/17 07:56 Cefazolin Sodium/Dextrose 2 gm (/ Premix) 50 mls @ 100 mls/hr IV ONETIME ONE Stop: 06/22/17 00:34 Last Admin: 06/23/17 19:55 Dose: Not Given Lactated Ringer's (Ringers, Lactated) 1,000 mls @ 125 mls/hr IV ASDIRECTED [facility] Last Admin: 06/23/17 03:38 Dose: 125 mls/hr Oxytocin 20 unit/ Lactated (Ringer's) 1,002 mls @ 500 mls/hr IV ASDIRECTED [facility] Lactated Ringer's (Ringers, Lactated) Confirm Administered Dose 1,000 mls @ as directed .ROUTE .[facility] ONE Stop: 06/22/17 07:54 Lactated Ringer's (Ringers, Lactated) 1,000 mls @ 40 mls/hr IV ASDIRECTED [facility] Last Admin: 06/23/17 12:24 Dose: 125 mls/hr Lactated Ringer's (Ringers, Lactated) Confirm Administered Dose 1,000 mls @ as directed .ROUTE .[facility] ONE Stop: 06/22/17 11:02 Lactated Ringer's (Ringers, Lactated) Confirm Administered Dose 0 mls @ as directed .ROUTE .[facility] ONE Stop: 06/23/17 01:48 Oxytocin/Lactated Ringer's (Pitocin In Lr 10 Units/1,000 Ml) 10 unit in 1,000 mls @ 12 mls/hr IV TITRATE AUBREY; 2 MUNITS/MIN PRN Reason: Protocol Last Admin: 06/23/17 06:51 Dose: 2 munits/min, 12 mls/hr Ketorolac Tromethamine (Toradol) Confirm Administered Dose 30 mg .ROUTE .STK- MED ONE Stop: 06/23/17 01:48 Lidocaine/Epinephrine (Xylocaine-Mpf 2%-Epi 1:200,000) Confirm Administered Dose 20 ml .ROUTE .STK-MED ONE Stop: 06/22/17 08:13 Lidocaine/Epinephrine (Xylocaine-Mpf 2%-Epi 1:200,000) Confirm Administered Dose 20 ml .ROUTE .STK-MED ONE Stop: 06/23/17 01:48 Lidocaine/Epinephrine (Xylocaine-Mpf 1.5% W/Epinephrine 1:200,000) 5 ml .ROUTE .STK-MED ONE Stop: 06/23/17 02:01 Metoclopramide HCl (Reglan) 10 mg IVPUSH ONETIME ONE Stop: 06/22/17 00:06 Last Admin: 06/22/17 06:12 Dose: 10 mg Metoclopramide HCl (Reglan) Confirm Administered Dose 10 mg .ROUTE .STK-MED ONE Stop: 06/22/17 06:04 Last Admin: 06/22/17 06:12 Dose: Not Given Misoprostol (Cytotec) 25 mcg PO Q3H AUBREY Stop: 06/22/17 14:16 Last Admin: 06/22/17 14:34 Dose: 25 mcg Misoprostol (Cytotec) Confirm Administered Dose 25 mcg .ROUTE .STK-MED ONE Stop: 06/22/17 08:18 Last Admin: 06/22/17 11:31 Dose: Not Given Misoprostol (Cytotec) 25 mcg VAG ONETIME ONE Stop: 06/22/17 17:47 Last Admin: 06/22/17 17:54 Dose: 25 mcg Morphine Sulfate (Duramorph Pf) Confirm Administered Dose 10 mg .ROUTE .STK-MED ONE Stop: 06/22/17 06:56 Morphine Sulfate (Duramorph Pf) Confirm Administered Dose 10 mg .ROUTE .STK-MED ONE Stop: 06/23/17 01:48 Nalbuphine HCl (Nubain) 10 mg IVPUSH Q3H PRN PRN Reason: Pain Ondansetron HCl (Zofran) 4 mg IVPUSH ONETIME PRN PRN Reason: Nausea/Vomiting Last Admin: 06/23/17 06:44 Dose: 4 mg Ondansetron HCl (Zofran) Confirm Administered Dose 4 mg .ROUTE .STK-MED ONE Stop: 06/23/17 01:48 Ondansetron HCl (Zofran) 4 mg IVPUSH Q4H PRN PRN Reason: Nausea/Vomiting Oxytocin (Pitocin) Confirm Administered Dose 10 unit .ROUTE .STK-MED ONE Stop: 06/23/17 01:48 Phenylephrine HCl (Kwaku-Synephrine) Confirm Administered Dose 10 mg .ROUTE .STK- MED ONE Stop: 06/23/17 01:48 Sodium Chloride (Saline Flush) 10 ml FLUSH ASDIRECTED PRN PRN Reason: Keep Vein Open Sodium Chloride (Saline Flush) 10 ml FLUSH ASDIRECTED PRN PRN Reason: Keep Vein Open *Q Meaningful Use (DIS) - VTE *Q VTE Criteria *Q: - Stroke *Q Stroke Criteria *Q: - AMI *Q AMI Criteria *Q:
[2017-06-25] MEDS: Prenatal Multivitamin with Calcium/Folic Acid/Iron Tab PO SCH (09:34)
== END 2017-06-25 10:48 | disposition home or self-care (01) | DRG 542 ==
LOC: JD.OB 05:37 → INTOOBSV 05:37 → JD.OB 05:37 → OBSVTOIN 06-23 15:24
PROVIDERS: ADMIT Obstetrics & Gynecology; ATTEND Obstetrics & Gynecology
PROC: 10S0XZZ Reposition Products of Conception, External Approach (ICD-10-PCS; 2017-06-22)
PROC: 3E0P7VZ Introduction of Hormone into Female Reproductive, Via Natural or Artificial Opening (ICD-10-PCS; 2017-06-22)
PROC: 10907ZC Drainage of Amniotic Fluid, Therapeutic from Products of Conception, Via Natural or Artificial Opening (ICD-10-PCS; 2017-06-22)
PROC: 00HU33Z Insertion of Infusion Device into Spinal Canal, Percutaneous Approach (ICD-10-PCS; 2017-06-22)
PROC: 3E0R3BZ Introduction of Anesthetic Agent into Spinal Canal, Percutaneous Approach (ICD-10-PCS; 2017-06-22)
PROC: 10E0XZZ Delivery of Products of Conception, External Approach (ICD-10-PCS; principal; 2017-06-23)
PROC: 0DQR0ZZ Repair Anal Sphincter, Open Approach (ICD-10-PCS; 2017-06-23)
DX: O32.1XX0 Maternal care for breech presentation, not applicable or unspecified (principal); O69.81X0 Labor and delivery complicated by cord around neck, without compression, not applicable or unspecified; O70.20 Third degree perineal laceration during delivery, unspecified; O77.0 Labor and delivery complicated by meconium in amniotic fluid; Z3A.39 39 weeks gestation of pregnancy; Z37.0 Single live birth
CPT/HCPCS: 36415; 51702; 59300; 59409; 85025; 86850; 86900; 86901; 94762; A9270-GY; J0690; J1885; J2270; J2370; J2405; J2590; J2765; J3010; J3490; J7120

== ENCOUNTER 2020-03-23 07:07 | Inpatient (IN) | payer BC ==
[~2020-03-23 07:07] MED LIST changes: +Bupivacaine 0.25% 10 ML SDV ONE; -Citric Acid/Sodium Citrate Solution 30 ML Cup PO ONE; -Metoclopramide 10 MG/2 ML SDV IVPUSH ONE; -Sodium Chloride 0.9% 10 ML Syringe FLUSH PRN; -ceFAZolin 2 GM in Premix Bag 1 BAG IV ONE
[2020-03-23] MEDS ORDERED: Ondansetron 4 MG/2 ML SDV IVPUSH PRN (07:18)
[2020-03-23] MEDS ORDERED: Sodium Chloride 0.9% 10 ML Syringe FLUSH PRN (07:18)
[2020-03-23] MEDS ORDERED: Nalbuphine 10 MG/1 ML Vial IVPUSH PRN (07:18)
[2020-03-23] MEDS ORDERED: Oxytocin/Lactated Ringers 10 UNIT/1,000 ML BAG IV SCH ×2 (07:30)
[2020-03-23] MEDS: Lactated Ringers 1,000 ML IV SCH ×3 (08:47→13:41)
--- NOTE | 2020-03-23 09:05 | PCM.LDHP ---
L&D History of Present Illness - General Date of Service: 03/23/20 Admit Problem/Dx: Patient Status Order with Admit Dx/Problem 03/23/20 07:18 Patient Status [ADT] Routine Admission Diagnosis/Problem Admission Diagnosis/Problem Source of Information: Patient History Limitations: Reports: No Limitations - History of Present Illness Introduction:: Abiola Cannon is a 30-year-old -0-0-1 female at 38 weeks 0 days gestational age (BARB 04/06/2020) by a 5-week ultrasound with Di/Di twins who presents for elective induction of labor. She has been doing well at this time and feels like her contractions have been slowing down over the last several weeks. She has been having [place] contractions that will occur about 8-12 times per day where they previously were occurring about 15-20 times per day. She denies any leaking of fluid or vaginal bleeding but is having an increased amount of mucus discharge. She feels like she is feeling both infants moving. Location, : Reports: Lower back, Pelvic Quality: Reports: Pressure Severity: Mild Improves with: Reports: None Worsens with: Reports: None Associated Symptoms: Denies: vaginal bleeding, vaginal discharge, vaginal fluid Present Illness Comments:: Abiola Cannon is a 30-year-old -0-0-1 female at 38 weeks 0 days (BARB 04/06/2020) by a 5-week ultrasound with Di/Di twins who presents for elective induction of labor. She has had routine care starting at [address] Regalado and myself, Dr. Lee. She has also been routinely evaluated by Dr. Singh for her high risk with the Di/Di twins. She received Tdap and flu vaccination on 01/19/2020. She was on aspirin 81 mg daily throughout her for preeclampsia prophylaxis. Her anatomy ultrasound was normal and there were no significant abnormalities. She was diagnosed with COVID-19 infection on 02/09/2020. She was diagnosed with gestational diabetes on 01/20/2020. She was monitored for her blood sugars throughout the remainder of her and she was able to keep good control of her gestational diabetes with use of diet and exercise. 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 She has had normal growth throughout the . There have not been any complications. The discordance on the most recent ultrasound on 03/15/2020 was 9%. Twin A was measuring at the 24th percentile and the twin B was measuring at the 47th percentile. * A1 gestational diabetes -patient diagnosed with gestational diabetes at 29 weeks gestational age. She has been able to control her blood sugars with diet and exercise throughout the entirety of the . We will plan to recheck for overt diabetes at 6 weeks after delivery. labs Blood type: A+ Antibody screen: Negative First trimester hematocrit/hemoglobin: 40.2%/14.1 on 08/12/2019 Platelets: 246 on 08/12/2019 Urine culture: Mixed nacho suggestive of contamination Rubella status: Immune Hepatitis B surface antigen: Negative RPR: Negative HIV: Negative Gonorrhea: Negative Chlamydia: Negative Anatomy ultrasound, twin A: Normal anatomy, no abnormalities, right posterior placenta, no previa, 24th percentile on most recent ultrasound on 03/15/2020 Anatomy ultrasound, twin B: Normal anatomy, no abnormalities, left anterior placenta, no previa, 47th percentile on most recent ultrasound on 03/15/2020 One hour glucose tolerance test: 143 Second trimester hematocrit/hemoglobin: 33.7%/11.2 on 01/14/2020 Platelets: 143 on 01/14/2020 3-hour glucose tolerance test: Fasting 91, 1 hour 164, 2-hour 180, 3-hour 154 GBS status: Negative - Related Data Allergies/Adverse Reactions: Allergies Allergy/AdvReac Type Severity Reaction Status Date / Time No Known Allergies Allergy Verified 06/22/17 00:05 Home Medications: Home Meds Vit with Ca/FA/Iron [ Plus Iron] 1 each PO DAILY tablet 06/25/17 [Rx] Past Medical History - Past Health History Medical/Surgical History: Denies Medical/Surgical History Cardiovascular History: Reports: None Respiratory History: Reports: None Gastrointestinal History: Reports: GERD 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: Other (See Below) (3rd degree laceration with first delivery) : 2 Para: 1 - Past Surgical History HEENT Surgical History: Reports: Oral Surgery - History Comment History Comment: unisom for sleep and multivit Social & Family History - Family History Family Medical History: No Pertinent Family History - Tobacco Use Tobacco Use Status *Q: Never Tobacco User Tobacco Use Within Last Twelve Months: No - Tobacco Core Measures Tobacco Use/Smoking Within Last 30 Days: No Smokeless Tobacco Use in Last 30 Days: No - Caffeine Use Caffeine Use: Reports: None - Alcohol Use Alcohol Use History: No - Recreational Drug Use Recreational Drug Use: No Drug Use in Last 12 Months: No - Living Situation & Occupation Living situation: Reports: , with Spouse, with Family H&P Review of Systems - Review of Systems: Review Of Systems: See Below General: Denies: Fever, Chills, Malaise, Weakness, Fatigue HEENT: Denies: Headaches, Rhinitis, Post Nasal Drip, Sinus Congestion, Sore Throat, Visual Changes Pulmonary: Denies: Shortness of Breath, Wheezing, Pleuritic Chest Pain, Cough Cardiovascular: Reports: Palpitations. Denies: Chest Pain, Dyspnea on Exertion, Orthopnea Gastrointestinal: Reports: Diarrhea. Denies: Abdominal Pain, Constipation, Na usea, Vomiting Genitourinary: Denies: Dysuria, Frequency, Burning, Pain, Urgency Musculoskeletal: Reports: Back Pain (and hip pain of ) Skin: Denies: Rash, Lesions Psychiatric: Denies: Depression, Anxiety L&D Exam - Exam Exam: See Below - Vital Signs Weight: 83.007 kg - OB Specific Contraction Duration (sec): 60-75 Contraction Frequency (min): 5-10 Contraction Intensity: Mild Movement: Active Heart Tones: Present Heart Tones per Min: 125 (Twin A 125, Twin B 130) Heart Rate (FHR) Variability: Moderate (6-25 bmp) (for twin A and twin B) Presentation: Vertex (for twin A and twin B confirmed by ultrasound) - Hernandez Score Hernandez Score Cervix Position: Posterior Hernandez Score Consistency: Soft Hernandez Score Effacement: 51-70% (60) Hernandez Score Dilation: 3-4 cm (3.5 cm) Hernandez Score 's Station: -3 Hernandez Score Total: 6 - Exam General: Alert, Oriented HEENT: Conjunctiva Clear, EOMI Neck: Supple, Trachea Midline Lungs: Clear to Auscultation, Normal Respiratory Effort Cardiovascular: Regular Rate, Regular Rhythm GI/Abdominal Exam: Soft, Non-Tender, No Distention. No: Guarding, Rigid, Rebound Genitourinary: Normal external exam Extremities: Normal Inspection, No Pedal Edema Skin: Warm, Dry, Intact Psychiatric: Alert, Normal Affect, Normal Mood - Patient Data Lab Results Last 24 hrs: Laboratory Results - last 24 hr 03/23/20 03/23/20 Range/Units 08:00 08:00 WBC 6.40 (3.98-10.04) K/mm3 RBC 3.63 L (3.98-5.22) M/mm3 Hgb 10.4 L (11.2-15.7) gm/dl Hct 32.5 L (34.1-44.9) % MCV 89.5 D (79.4-94.8) fl MCH 28.7 (25.6-32.2) pg MCHC 32.0 L (32.2-35.5) g/dl RDW Std Deviation 41.6 (36.4-46.3) fL Plt Count 128 L (182-369) K/mm3 MPV 12.4 H (9.4-12.3) fl Neut % (Auto) 69.7 (34.0-71.1) % Lymph % (Auto) 22.2 (19.3-51.7) % [place] % (Auto) 6.4 (4.7-12.5) % Eos % (Auto) 0.9 (0.7-5.8) Baso % (Auto) 0.2 (0.1-1.2) % Neut # (Auto) 4.46 (1.56-6.13) K/mm3 Lymph # (Auto) 1.42 (1.18-3.74) K/mm3 [place] # (Auto) 0.41 H (0.24-0.36) K/mm3 Eos # (Auto) 0.06 (0.04-0.36) K/mm3 Baso # (Auto) 0.01 (0.01-0.08) K/mm3 Blood Type A POSITIVE Result Diagrams: 03/23/20 08:00 - Problem List (1) 38 weeks gestation of SNOMED Code(s): 75159270 ICD Code: Z3A.38 - 38 WEEKS GESTATION OF Status: Acute Current Visit: Yes (2) Dichorionic diamniotic twin SNOMED Code(s): 780236640 ICD Code: O30.049 - TWIN , DICHORIONIC/DIAMNIOTIC, UNSP TRIMESTER Status: Acute Current Visit: Yes (3) Gestational diabetes mellitus, class A1 SNOMED Code(s): 14848621 ICD Code: O24.410 - GESTATIONAL DIABETES MELLITUS IN , DIET CONTROLLED Status: Acute Current Visit: Yes Problem List Initiated/Reviewed/Updated: Yes Orders Last 24hrs: Active Orders 24 hr Category Date Time Status Patient Status [ADT] Routine ADT 03/23/20 07:18 Active Activity as Tolerated [RC] PFP Care 03/23/20 07:18 Active Communication Order [RC] ASDIRECTED Care 03/23/20 07:18 Active Heart Tones [RC] ASDIRECTED Care 03/23/20 07:19 Active Non Stress Test [RC] PER UNIT ROUTINE Care 03/23/20 07:18 Active Notify Provider [RC] PFP Care 03/23/20 07:18 Active Notify Provider [RC] PRN Care 03/23/20 07:18 Active Peripheral IV Care [RC] . DIRECTED Care 03/23/20 07:19 Active Pump Management, Intrathecal [RC] ASDIRECTED Care 03/23/20 07:20 Active Urinary Catheter Assessment [RC] ASDIRECTED Care 03/23/20 07:18 Active Vital Signs [RC] PER UNIT ROUTINE Care 03/23/20 07:18 Active Regular Diet [DIET] Diet 03/23/20 Breakfast Active RAPID PLASMA REAGIN,RPR [CHEM] Routine Lab 03/23/20 08:00 Received TYPE AND SCREEN [BBK] Stat Lab 03/23/20 08:00 Results Lactated Ringers [Ringers, Lactated] 1,000 ml Med 03/23/20 07:30 Active IV ASDIRECTED Nalbuphine [Nubain] Med 03/23/20 07:18 Active 10 mg IVPUSH Q2H PRN Ondansetron [Zofran] Med 03/23/20 07:18 Active 4 mg IVPUSH Q4H PRN Oxytocin/Lactated Ringers [Pitocin in LR 10 Units/1,000 Med 03/23/20 07:30 Active ML] 10 unit in 1,000 ml IV .CONTINUOUS Oxytocin/Lactated Ringers [Pitocin in LR 10 Units/1,000 Med 03/23/20 07:30 Active ML] 10 unit in 1,000 ml IV TITRATE Sodium Chloride 0.9% [Saline Flush] Med 03/23/20 07:18 Active 10 ml FLUSH ASDIRECTED PRN Electronic Heart Tones Ext w TOCO [WOMSER] Oth 03/23/20 07:18 Ordered Routine Electronic Heart Tones Internal [WOMSER] Per Unit Oth 03/23/20 07:18 Ordered Routine Peripheral IV Insertion Adult [OM.PC] Routine Oth 03/23/20 07:18 Ordered Resuscitation Status Routine Resus Stat 03/23/20 07:18 Ordered Medication Orders Oxytocin/Lactated Ringer's (Pitocin In Lr 10 Units/1,000 Ml) 10 unit in 1,000 mls @ 12 mls/hr IV TITRATE AUBREY; Protocol Last Admin: 03/23/20 08:48 Dose: 2 munits/min, 12 mls/hr Documented by: DVORMAR Oxytocin/Lactated Ringer's (Pitocin In Lr 10 Units/1,000 Ml) 10 unit in 1,000 mls @ 500 mls/hr IV .CONTINUOUS AUBREY Lactated Ringer's (Ringers, Lactated) 1,000 mls @ 100 mls/hr IV ASDIRECTED AUBREY Last Admin: 03/23/20 08:47 Dose: 100 mls/hr Documented by: BECCA Nalbuphine HCl (Nubain) 10 mg IVPUSH Q2H PRN PRN Reason: Pain Ondansetron HCl (Zofran) 4 mg IVPUSH Q4H PRN PRN Reason: Nausea/Vomiting Sodium Chloride (Saline Flush) 10 ml FLUSH ASDIRECTED PRN PRN Reason: Keep Vein Open Assessment/Plan Comment:: Abiola Cannon is a 30-year-old -0-0-1 female at 38 weeks 0 days (BARB 04/06/2020) with Di/Di twins who presents for elective induction of labor with her complicated by di-/Di twins in vertex presentation for both twins and A1 gestational diabetes Refer to observation for elective induction of labor Start Pitocin for induction of labor Continuous monitoring Place IV and have Lactated Ringer's at 125 ml/hr May have small amounts of regular diet Activity as tolerated May have epidural as desired Plans to bottlefeed after delivery Check fingerstick blood glucose values now and every 4 hours to monitor for signs of maternal hyperglycemia which would indicate need for insulin management Anticipate vaginal delivery unless otherwise indicated We will plan for delivery in the operating room at time of delivery Remi Lee MD 9:34 AM 03/23/2020
[2020-03-23] MEDS ORDERED: Bupivacaine/fentaNYL/NS 100 ML Bag EPIDUR PRN (11:16)
[2020-03-23] MEDS ORDERED: diphenhydrAMINE 50 MG/ML SDV IVPUSH PRN (11:16)
[2020-03-23] MEDS ORDERED: fentaNYL 100 MCG/2 ML SDV EPIDUR PRN (11:16)
[2020-03-23] MEDS ORDERED: ePHEDrine 50 MG/ML SDV IVPUSH PRN (11:16)
--- NOTE | 2020-03-23 11:22 | PCM.PREANE ---
Preanesthetic Assessment - Procedure Proposed Procedure: lani - Anesthesia/Transfusion/Family Hx Anesthesia History: Prior Anesthesia Without Reaction Family History of Anesthesia Reaction: No Transfusion History: No Prior Transfusion(s) - Review of Systems General: No Symptoms Pulmonary: Shortness of Breath () Cardiovascular: Palpitations (racing heart beat prn- checked out and its the twin babies) Gastrointestinal: Diarrhea (last week -diarrhea) Neurological: No Symptoms Other: Reports: Diabetes (gestational ), Anxiety (stopped lexapro after pregn) - Physical Assessment Vital Signs: Last Vital Signs Temp 97.8 F 03/23/20 07:18 Pulse 97 03/23/20 07:18 Resp 16 03/23/20 07:18 BP 115/76 03/23/20 07:18 Pulse Ox 96 03/23/20 07:18 Height: 5 ft 7 in Weight: 83.007 kg ASA Class: 2 Mental Status: Alert & Oriented x3 Airway Class: Mallampati = 1 Dentition: Reports: Normal Dentition Thyro-Mental Finger Breadths: 3 Mouth Opening Finger Breadths: 3 ROM/Head Extension: Full Lungs: Clear to Auscultation, Normal Respiratory Effort Cardiovascular: Regular Rate, Regular Rhythm - Lab Values: Laboratory Last Values WBC 6.40 K/mm3 (3.98-10.04) 03/23/20 08:00 RBC 3.63 M/mm3 (3.98-5.22) L 03/23/20 08:00 Hgb 10.4 gm/dl (11.2-15.7) L 03/23/20 08:00 Hct 32.5 % (34.1-44.9) L 03/23/20 08:00 MCV 89.5 fl (79.4-94.8) D 03/23/20 08:00 MCH 28.7 pg (25.6-32.2) 03/23/20 08:00 MCHC 32.0 g/dl (32.2-35.5) L 03/23/20 08:00 RDW Std Deviation 41.6 fL (36.4-46.3) 03/23/20 08:00 Plt Count 128 K/mm3 (182-369) L 03/23/20 08:00 MPV 12.4 fl (9.4-12.3) H 03/23/20 08:00 Neut % (Auto) 69.7 % (34.0-71.1) 03/23/20 08:00 Lymph % (Auto) 22.2 % (19.3-51.7) 03/23/20 08:00 [place] % (Auto) 6.4 % (4.7-12.5) 03/23/20 08:00 Eos % (Auto) 0.9 (0.7-5.8) 03/23/20 08:00 Baso % (Auto) 0.2 % (0.1-1.2) 03/23/20 08:00 Neut # (Auto) 4.46 K/mm3 (1.56-6.13) 03/23/20 08:00 Lymph # (Auto) 1.42 K/mm3 (1.18-3.74) 03/23/20 08:00 [place] # (Auto) 0.41 K/mm3 (0.24-0.36) H 03/23/20 08:00 Eos # (Auto) 0.06 K/mm3 (0.04-0.36) 03/23/20 08:00 Baso # (Auto) 0.01 K/mm3 (0.01-0.08) 03/23/20 08:00 POC Glucose 86 mg/dL (70-105) 03/23/20 08:22 Blood Type A POSITIVE 03/23/20 08:00 Gel Antibody Screen Negative 03/23/20 08:00 - Allergies Allergies/Adverse Reactions: Allergies Allergy/AdvReac Type Severity Reaction Status Date / Time No Known Allergies Allergy Verified 06/22/17 00:05 - Blood Blood Available: No - Acknowledgements Anesthesia Type Planned: Epidural Pt an Appropriate Candidate for the Planned Anesthesia: Yes Alternatives and Risks of Anesthesia Discussed w Pt/Guardian: Yes Pt/Guardian Understands and Agrees with Anesthesia Plan: Yes PreAnesthesia Questionnaire - Past Health History Medical/Surgical History: Denies Medical/Surgical History Cardiovascular History: Reports: None, Other (See Below) (heart racing throughout - drs say ok) Respiratory History: Reports: None Gastrointestinal History: Reports: GERD 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 (See Below) (3rd degree laceration with first delivery) : 2 Para: 1 Psychiatric History: Reports: Anxiety, Other (See Below) Other Psychiatric History: hx pp depression Endocrine/Metabolic History: Reports: Diabetes, Gestational - Infectious Disease History Infectious Disease History: Reports: Novel Coronavirus - Past Surgical History HEENT Surgical History: Reports: Oral Surgery - History Comment History Comment: unisom for sleep and multivit - SUBSTANCE USE Tobacco Use Status *Q: Never Tobacco User Tobacco Use Within Last Twelve Months: No Second Hand Smoke Exposure: No Days Per Week of Alcohol Use: 0 Recreational Drug Use History: No - HOME MEDS Home Medications: Home Meds Vit with Ca/FA/Iron [ Plus Iron] 1 each PO DAILY tablet 06/25/17 [Rx] - CURRENT (IN HOUSE) MEDS Current Meds: Current Medications Oxytocin/Lactated Ringer's (Pitocin In Lr 10 Units/1,000 Ml) 10 unit in 1,000 mls @ 12 mls/hr IV TITRATE AUBREY; Protocol Last Titration: 03/23/20 11:00 Dose: 10 munits/min, 60 mls/hr Documented by: Oxytocin/Lactated Ringer's (Pitocin In Lr 10 Units/1,000 Ml) 10 unit in 1,000 mls @ 500 mls/hr IV .CONTINUOUS AUBREY Lactated Ringer's (Ringers, Lactated) 1,000 mls @ 100 mls/hr IV ASDIRECTED AUBREY Last Admin: 03/23/20 08:47 Dose: 100 mls/hr Documented by: Nalbuphine HCl (Nubain) 10 mg IVPUSH Q2H PRN PRN Reason: Pain Ondansetron HCl (Zofran) 4 mg IVPUSH Q4H PRN PRN Reason: Nausea/Vomiting Sodium Chloride (Saline Flush) 10 ml FLUSH ASDIRECTED PRN PRN Reason: Keep Vein Open
--- NOTE | 2020-03-23 14:15 | PCM.PNLD ---
Labor Progress Note - VS & Meds Vital Signs: Last Vital Signs Temp 36.6 C 03/23/20 07:18 Pulse 97 03/23/20 07:18 Resp 16 03/23/20 07:18 BP 115/76 03/23/20 07:18 Pulse Ox 96 03/23/20 07:18 Active Medications: Current Medications Diphenhydramine HCl (Benadryl) 25 mg IVPUSH Q6H PRN PRN Reason: pruritis Ephedrine Sulfate (Ephedrine Sulfate) 5 mg IVPUSH ASDIRECTED PRN PRN Reason: Hypotension Fentanyl (Sublimaze) 100 mcg EPIDUR Q3H PRN PRN Reason: Pain Last Admin: 03/23/20 12:52 Dose: 100 mcg Documented by: Fentanyl/Bupivacaine HCl (Fentanyl/Bupivacaine/Ns 2 Mcg-0.125% 100 Ml) 100 ml EPIDUR ASDIRECTED PRN PRN Reason: Pain Last Admin: 03/23/20 12:51 Dose: 100 ml Documented by: Oxytocin/Lactated Ringer's (Pitocin In Lr 10 Units/1,000 Ml) 10 unit in 1,000 mls @ 12 mls/hr IV TITRATE AUBREY; Protocol Last Titration: 03/23/20 11:00 Dose: 10 munits/min, 60 mls/hr Documented by: Oxytocin/Lactated Ringer's (Pitocin In Lr 10 Units/1,000 Ml) 10 unit in 1,000 mls @ 500 mls/hr IV .CONTINUOUS AUBREY Lactated Ringer's (Ringers, Lactated) 1,000 mls @ 100 mls/hr IV ASDIRECTED AUBREY Last Admin: 03/23/20 13:41 Dose: 100 mls/hr Documented by: Nalbuphine HCl (Nubain) 10 mg IVPUSH Q2H PRN PRN Reason: Pain Ondansetron HCl (Zofran) 4 mg IVPUSH Q4H PRN PRN Reason: Nausea/Vomiting Sodium Chloride (Saline Flush) 10 ml FLUSH ASDIRECTED PRN PRN Reason: Keep Vein Open - Uterine Contractions Contraction Frequency (min): 2-3 Contraction Duration (sec): 60-75 Contraction Intensity: Moderate to Strong Uterine Resting Tone: Soft - Monitoring Monitor Mode: Doppler/Auscultation Heart Rate (FHR) Baseline: 130 (Twin A 130, Twin B 120) Heart Rate (FHR) Variability: Moderate (6-25 bmp) (for twin A and twin B) Accelerations: Present, 15x15 (for both Twin A and Twin B) Decelerations: None Strip Review: Category I (for twin A and twin B) - Vaginal Exam Dilation (cm): 6 Effacement (Percent): 90 Station: -2 Cervical Position: Posterior Sterile Vaginal Exam Performed By: Remi Lee Vaginal Exam Comment: Artificial rupture membranes performed with [place] with return of large amount of clear fluid. Both twin a and twin B tolerated procedure without difficulty. Mother tolerated procedure without difficulty. - Labor Progress (Free Text) Labor Progress: Abiola Cannon is a 30-year-old -0-0-1 at 38 weeks 0 days (BARB 04/06/2020) who is undergoing elective induction of labor in the setting of Di/Di twins Patient doing well at this time Patient making good progress with induction of labor with Pitocin Continue Pitocin for induction of labor Routine vitals Continuous monitoring of both twins Patient with epidural in place and working well for her at this time Twin A underwent artificial rupture membranes with return of large amount of clear fluid Anticipate vaginal delivery unless otherwise indicated We will continue to plan for delivery in the operating room Remi Lee MD 2:44 PM 03/23/2020
--- NOTE | 2020-03-23 18:41 | PCM.SN.2 ---
- Free Text/Narrative Note: 03/23/201838 in OR room 1. Dr Lee and OB nurses here. Called in to turn off epidural pump as she can't feel to push. Lucila Bustos
[2020-03-24] MEDS: Ibuprofen 600 MG Tab PO PRN ×4 (00:15→19:00)
[2020-03-24] MEDS ORDERED: Benzocaine/Menthol 20%-0.5% Spray 56 GM Canister TOP PRN ×2 (03:23→08:38)
[2020-03-24] MEDS ORDERED: Witch Hazel Medicated Pads 40/Jar TOP PRN ×2 (03:23→08:38)
--- NOTE | 2020-03-24 07:25 | PCM48HPAN ---
Post Anesthesia Note - EVALUATION WITHIN 48HRS OF ANESTHETIC Vital Signs in Normal Range: Yes Patient Participated in Evaluation: Yes Respiratory Function Stable: Yes Airway Patent: Yes Cardiovascular Function Stable: Yes Hydration Status Stable: Yes Pain Control Satisfactory: Yes Nausea and Vomiting Control Satisfactory: Yes Mental Status Recovered: Yes Vital Signs: Last Vital Signs Temp 36.6 C 03/23/20 07:18 Pulse 97 03/23/20 07:18 Resp 16 03/23/20 07:18 BP 115/76 03/23/20 07:18 Pulse Ox 96 03/23/20 07:18
[2020-03-24] MEDS ORDERED: Hydrocortisone Acetate 25 MG Supp RECTAL PRN (08:38)
[2020-03-24] MEDS ORDERED: Acetaminophen 325 MG Tab PO PRN (08:38)
[2020-03-24] MEDS ORDERED: Oxytocin/Lactated Ringers 10 UNIT/1,000 ML BAG IV SCH (08:38)
[2020-03-24] MEDS ORDERED: Magnesium Hydroxide 400 MG/5 ML Susp 30 ML Cup PO PRN (08:38)
--- NOTE | 2020-03-24 09:42 | PCM.DEL ---
L & D Note - General Info Date of Service: 03/23/20 Mother's Due Date: 04/06/20 - Delivery Note Labor: Augmented by ARM, Induced by Oxytocin Cervical Ripening Method: Oxytocin Delivery Outcome: Livebirth (x2) Infant Delivery Method: Spontaneous Vaginal Delivery-Twins Presentation: Vertex twin A, breech extraction delivery after arm presentation for twin B Nuchal Cord: Present (x1 for twin B, reduced after delivery of aftercoming head) Anesthesia Type: Epidural Amniotic Fluid Description: Clear (for both infants) Episiotomy Type: None Laceration: 2nd Degree (midline perineal laceration, repaired with 3-0 Vicryl) Suture type: Vicryl Suture size: 3-0 Placenta: Intact, Spontaneous Cord: 3 Vessels (x2) Estimated Blood Loss: 400 Second Stage Interventions: Reports: Pushing Effectively, Pushing, Stirrups/Leg Supports Delivery Comments (Free Text/Narrative):: Stage I: Abiola Cannon was admitted for elective induction of labor. On admission her cervix was dilated to 3.5 cm. She was GBS negative. She was started on Pitocin for induction of labor. She was given epidural seizure. She had artificial rupture membranes vaginal opening. presenting twins amniotic sac with return of large amount of clear fluid. She progressed to complete and was transferred to the operating room for delivery. Once in the operating room she began pushing. Stage II: On 03/23/2020 she had a normal vaginal delivery of twin A which was a live female infant at 19:33. Apgars of 9 & 9. Weight of 2510 g (5 lbs 8.5 oz). Length of 19.0 inches. There was no nuchal cord. Infant was delivered in GRAHAM position. The cord was doubly clamped and cut by father the . was placed on mother's abdomen initially and then taken to the warmer for additional resuscitation. After delivery of twin A, an evaluation was performed with bimanual exam as well as bedside ultrasound. Bedside ultrasound showed the was in vertex presentation. On bimanual exam the presenting part was the hand. Attempt was made to try to move the head into the presenting part but this was unsuccessful. Artificial rupture membranes was performed with return of large amount of clear fluid. Attempt was again made to re position infant into vertex presenting part but this was unsuccessful and the presenting part was a shoulder with an arm coming through the cervix. Decision was made to proceed with breech extraction delivery. The right leg and foot was able to be grasped and brought through the vaginal opening. The was then repositioned and the left leg was grasped and was able to be brought to the vaginal opening. The abdomen was then able to be delivered with the in the right sacral posterior position. The left arm delivered with the abdomen. The infant was then rotated in a counterclockwise manner and the right arm was able to be delivered. After delivery of the right arm the was elevated to extend the neck. The head was then flexed using the MauriceauSmellieVeit maneuver and the was able to be delivered. On 03/23/2020 she had a breech extraction vaginal delivery of a live male at 19:43. Apgars of 2 & 8. Weight of 3170 g (6 lbs 15.8 oz). Length of 20.0 inches. There was a single nuchal cord that was reduced after delivery of the after coming head. was delivered in right sacrum posterior position. The cord was doubly clamped and cut by myself, Dr. Lee. was taken to the warmer immediately after delivery for resuscitation by instrument worker, Dr. Gordon. Stage III: She had a spontaneous delivery of an intact placenta in Casandra presentation. Three vessel cord x2. She was given pitocin and fundal massage. She had a second-degree midline perineal laceration that was repaired with 3-0 Vicryl. Mom and babies were stable to recovery. EBL of 400 mL. Remi eLe MD 10:40 PM 03/23/2020 Induction Criteria - Hernandez Score Hernandez Score Dilation: 3-4 cm Hernandez Score Effacement: 60-70% Hernandez Score 's Station: -3 Hernandez Score Consistency: Medium Hernandez Score Cervix Position: Posterior Hernandez Score Total: 5 Hernandez Score Presenting Part: Reports: Cephalic - Induction Gestational Age >/= 39 wks: No Medical Indication: Dichorionic/diamniotic twins Estimated Pelvis: Reports: Adequate Reassuring Monitoring Strip: Yes Absence of Tachy Systole: Yes - Augmentation Estimated Pelvis: Reports: Adequate Weight Estimated:: Reports: AGA Reassuring Monitoring Strip: Yes Absence of Tachy Systole: Yes - General Info Date of Service: 03/23/20 - Patient Data Vitals - Most Recent: Last Vital Signs Temp 36.6 C 03/23/20 07:18 Pulse 97 03/23/20 07:18 Resp 16 03/23/20 07:18 BP 115/76 03/23/20 07:18 Pulse Ox 96 03/23/20 07:18 Weight - Most Recent: 83.007 kg I&O - Last 24 Hours: Intake & Output 03/23/20 03/24/20 03/24/20 22:59 06:59 14:59 Intake Total 1999 2699 Balance 1999 2699 Lab Results Last 24 Hours: Laboratory Results - last 24 hr 03/23/20 03/23/20 03/23/20 Range/Units 08:22 12:21 16:35 WBC (3.98-10.04) K/mm3 RBC (3.98-5.22) M/mm3 Hgb (11.2-15.7) gm/dl Hct (34.1-44.9) % MCV (79.4-94.8) fl MCH (25.6-32.2) pg MCHC (32.2-35.5) g/dl RDW Std Deviation (36.4-46.3) fL Plt Count (182-369) K/mm3 MPV (9.4-12.3) fl Neut % (Auto) (34.0-71.1) % Lymph % (Auto) (19.3-51.7) % [place] % (Auto) (4.7-12.5) % Eos % (Auto) (0.7-5.8) Baso % (Auto) (0.1-1.2) % Neut # (Auto) (1.56-6.13) K/mm3 Lymph # (Auto) (1.18-3.74) K/mm3 [place] # (Auto) (0.24-0.36) K/mm3 Eos # (Auto) (0.04-0.36) K/mm3 Baso # (Auto) (0.01-0.08) K/mm3 POC Glucose 86 91 69 L (70-105) mg/dL 03/24/20 03/24/20 Range/Units 05:03 06:11 WBC 9.62 (3.98-10.04) K/mm3 RBC 3.28 L (3.98-5.22) M/mm3 Hgb 9.4 L (11.2-15.7) gm/dl Hct 29.6 L (34.1-44.9) % MCV 90.2 (79.4-94.8) fl MCH 28.7 (25.6-32.2) pg MCHC 31.8 L (32.2-35.5) g/dl RDW Std Deviation 41.9 (36.4-46.3) fL Plt Count 103 L (182-369) K/mm3 MPV 12.1 (9.4-12.3) fl Neut % (Auto) 76.1 H (34.0-71.1) % Lymph % (Auto) 17.4 L (19.3-51.7) % [place] % (Auto) 5.8 (4.7-12.5) % Eos % (Auto) 0.4 L (0.7-5.8) Baso % (Auto) 0.1 (0.1-1.2) % Neut # (Auto) 7.32 H (1.56-6.13) K/mm3 Lymph # (Auto) 1.67 (1.18-3.74) K/mm3 [place] # (Auto) 0.56 H (0.24-0.36) K/mm3 Eos # (Auto) 0.04 (0.04-0.36) K/mm3 Baso # (Auto) 0.01 (0.01-0.08) K/mm3 POC Glucose 80 (70-105) mg/dL Med Orders - Current: Current Medications Acetaminophen (Tylenol) 650 mg PO Q6H PRN PRN Reason: mild pain or fever Benzocaine/Menthol (Dermoplast Pain Relief Bliss) 0 gm TOP ASDIRECTED PRN PRN Reason: Perineal Comfort Measure Docusate Sodium (Colace) 100 mg PO BID PRN PRN Reason: Constipation Ferrous Sulfate (Ferrous Sulfate) 324 mg PO WITHBREAKFAST AUBREY Hydrocortisone Acetate (Anucort-Hc) 25 mg RECTAL BID PRN PRN Reason: Hemorrhoid pain Oxytocin/Lactated Ringer's (Pitocin In Lr 10 Units/1,000 Ml) 10 unit in 1,000 mls @ 100 mls/hr IV TITRATE AUBREY; Protocol Ibuprofen (Motrin) 600 mg PO Q6H PRN PRN Reason: Mild pain or fever Magnesium Hydroxide (Milk Of Magnesia) 30 ml PO BEDTIME PRN PRN Reason: Constipation Prenat Multivit/[place]/Iron/Folic Ac ( Plus Iron) 1 each PO DAILY [facility] Kristine Santana (Tucks) 1 pad TOP ASDIRECTED PRN PRN Reason: Perineal Comfort Measure Discontinued Medications Benzocaine/Menthol (Dermoplast Pain Relief Bliss) 15 gm TOP ASDIRECTED PRN PRN Reason: Pain Last Admin: 03/24/20 06:12 Dose: 1 can Documented by: Diphenhydramine HCl (Benadryl) 25 mg IVPUSH Q6H PRN PRN Reason: pruritis Ephedrine Sulfate (Ephedrine Sulfate) 5 mg IVPUSH ASDIRECTED PRN PRN Reason: Hypotension Fentanyl (Sublimaze) 100 mcg EPIDUR Q3H PRN PRN Reason: Pain Last Admin: 03/23/20 12:52 Dose: 100 mcg Documented by: Fentanyl/Bupivacaine HCl (Fentanyl/Bupivacaine/Ns 2 Mcg-0.125% 100 Ml) 100 ml EPIDUR ASDIRECTED PRN PRN Reason: Pain Last Admin: 03/23/20 12:51 Dose: 100 ml Documented by: Oxytocin/Lactated Ringer's (Pitocin In Lr 10 Units/1,000 Ml) 10 unit in 1,000 mls @ 12 mls/hr IV TITRATE [facility]; Protocol Last Titration: 03/23/20 14:20 Dose: 5 munits/min, 30 mls/hr Documented by: Oxytocin/Lactated Ringer's (Pitocin In Lr 10 Units/1,000 Ml) 10 unit in 1,000 mls @ 500 mls/hr IV .CONTINUOUS AUBREY Lactated Ringer's (Ringers, Lactated) 1,000 mls @ 100 mls/hr IV ASDIRECTED AUBREY Last Admin: 03/23/20 13:41 Dose: 100 mls/hr Documented by: Ibuprofen (Motrin) 600 mg PO Q6H PRN PRN Reason: Pain Last Admin: 03/24/20 06:11 Dose: 600 mg Documented by: Nalbuphine HCl (Nubain) 10 mg IVPUSH Q2H PRN PRN Reason: Pain Ondansetron HCl (Zofran) 4 mg IVPUSH Q4H PRN PRN Reason: Nausea/Vomiting Sodium Chloride (Saline Flush) 10 ml FLUSH ASDIRECTED PRN PRN Reason: Keep Vein Open Witch Esther (Tucks) 1 pad TOP ASDIRECTED PRN PRN Reason: Pain Last Admin: 03/24/20 06:11 Dose: 1 jar Documented by: - Problem List & Annotations (1) 38 weeks gestation of SNOMED Code(s): 82271812 Code(s): Z3A.38 - 38 WEEKS GESTATION OF Status: Acute Current Visit: Yes (2) Dichorionic diamniotic twin SNOMED Code(s): 990804345 Code(s): O30.049 - TWIN , DICHORIONIC/DIAMNIOTIC, UNSP TRIMESTER Status: Acute Current Visit: Yes (3) Gestational diabetes mellitus, class A1 SNOMED Code(s): 30745099 Code(s): O24.410 - GESTATIONAL DIABETES MELLITUS IN , DIET CONTROLLED Status: Acute Current Visit: Yes (4) Breech extraction, delivered SNOMED Code(s): 284386666 Code(s): O64.1XX0 - OBSTRUCTED LABOR DUE TO BREECH PRESENTATION, UNSP Statu s: Acute Current Visit: Yes (5) Second degree perineal laceration during delivery SNOMED Code(s): 1901470 Code(s): O70.1 - SECOND DEGREE PERINEAL LACERATION DURING DELIVERY Status: Acute Current Visit: Yes (6) Vaginal delivery SNOMED Code(s): 595116884 Code(s): O80 - ENCOUNTER FOR FULL-TERM UNCOMPLICATED DELIVERY Status: Acute Current Visit: No - Problem List Review Problem List Initiated/Reviewed/Updated: Yes - My Orders Last 24 Hours: My Active Orders 03/24/20 Breakfast Regular Diet [DIET] 03/24/20 08:38 Acetaminophen [TylenoL] 650 mg PO Q6H PRN Benzocaine/Menthol [Dermoplast Pain Relief Bliss] See Dose Instructions TOP ASDIRECTED PRN Docusate Sodium [Colace] 100 mg PO BID PRN Hydrocortisone Acetate [Anucort-HC] 25 mg RECTAL BID PRN Ibuprofen [Motrin] 600 mg PO Q6H PRN Magnesium Hydroxide [Milk of Magnesia] 30 ml PO BEDTIME PRN Oxytocin/Lactated Ringers [Pitocin in LR 10 Units/1,000 ML] 10 unit in 1,000 ml IV TITRATE witch Esther [Tucks] 1 pad TOP ASDIRECTED PRN Heat Therapy [OM.PC] PRN 03/24/20 08:38 Patient Status [ADT] Routine Activity as Tolerated [RC] PER UNIT ROUTINE Notify Provider Vital Signs [RC] ASDIRECTED Vital Signs [RC] ASDIRECTED Assess Lochia [WOMSER] Per Unit Routine Assess Uterine Involution [WOMSER] Per Unit Routine Breast Pump [WOMSER] Per Unit Routine Ice Therapy [OM.PC] Per Unit Routine Medication Administration Instruction [OM.PC] Routine Perineal Care [OM.PC] Per Unit Routine Peripheral IV Discontinue [OM.PC] Routine Sitz Bath [OM.PC] Per Unit Routine 03/24/20 09:00 Vit with Ca/FA/Iron [ Plus Iron] 1 each PO DAILY 03/25/20 07:00 Ferrous Sulfate 324 mg PO WITHBREAKFAST 03/25/20 07:30 Blood Glucose Check, Bedside [RC] DAILY 03/25/20 08:38 Heat Therapy [OM.PC] PRN - Plan Plan:: Abiola Cannon is a 30-year-old -0-0-3 female status post of twin A and breech extraction of twin B, PPD #0 complicated by Di/Di twins and A1 gestational diabetes Admit to inpatient following [normal] [spontaneous] vaginal delivery of twin A in breech extraction delivery of twin B Continue Pitocin per unit protocol following delivery of placenta and lactated Ringer's until tolerating regular diet [Regular] diet Vitals per unit routine Ibuprofen and Tylenol for pain control Assist with bottlefeeding as needed Continue to monitor lochia Recheck CBC in a.m. of PPD #1 due to EBL of 400 mL Check fasting glucose in the morning of PPD #1 and #2 Anticipate discharge home on day #2 Delivery note with late entry after [employer] was not working on night of delivery. The delivery note entered was dictated at 10:40 PM on 03/23/2020. Remi Lee MD 1:13 PM 03/24/2020
[2020-03-24] MEDS: Docusate Sodium 100 MG Cap PO PRN ×2 (12:46→20:25)
[2020-03-24] MEDS: Prenatal Multivitamin with Calcium/Folic Acid/Iron Tab PO SCH (12:47)
--- NOTE | 2020-03-24 13:18 | PCM.SN.2 ---
- Free Text/Narrative Note: Post Progress Note PPD #1 Subjective: Doing well overall. Ambulating slowly and having some pain when she gets out of bed and with walking. Lochia minimal. Voiding without difficulty. Tolerating regular diet without nausea or vomiting. Pain controlled with oral medications. Reports that she is having some lower abdominal and pelvic pain as well as low back pain. The abdominal soreness is getting better with a heating pad. Bottlefeeding with minimal difficulty. Reports that she is not having any milk production at this time. Objective: Vitals: Vital Signs - 24 hr 03/24/20 03/24/20 05:00 08:16 Temperature 36.8 C 36.7 C Pulse, 78 77 Peripheral Respiratory 16 15 Rate Blood Pressure 106/59 L 104/61 O2 Sat by Pulse 97 99 Oximetry Physical Exam General: Alert and oriented, no acute distress Lungs: Clear to auscultation bilaterally Heart: Regular rate and rhythm Abdomen: Soft, minimal appropriate tenderness, non-distended, fundus midline, nontender, and 1 fingerbreadth above the umbilicus Extremities: No edema Laboratory Tests 03/23/20 03/23/20 03/23/20 Range/Units 08:00 08:00 08:22 WBC 6.40 (3.98-10.04) K/mm3 RBC 3.63 L (3.98-5.22) M/mm3 Hgb 10.4 L (11.2-15.7) gm/dl Hct 32.5 L (34.1-44.9) % MCV 89.5 D (79.4-94.8) fl MCH 28.7 (25.6-32.2) pg MCHC 32.0 L (32.2-35.5) g/dl RDW Std Deviation 41.6 (36.4-46.3) fL Plt Count 128 L (182-369) K/mm3 MPV 12.4 H (9.4-12.3) fl Neut % (Auto) 69.7 (34.0-71.1) % Lymph % (Auto) 22.2 (19.3-51.7) % [place] % (Auto) 6.4 (4.7-12.5) % Eos % (Auto) 0.9 (0.7-5.8) Baso % (Auto) 0.2 (0.1-1.2) % Neut # (Auto) 4.46 (1.56-6.13) K/mm3 Lymph # (Auto) 1.42 (1.18-3.74) K/mm3 [place] # (Auto) 0.41 H (0.24-0.36) K/mm3 Eos # (Auto) 0.06 (0.04-0.36) K/mm3 Baso # (Auto) 0.01 (0.01-0.08) K/mm3 POC Glucose 86 (70-105) mg/dL Blood Type A POSITIVE Gel Antibody Screen Negative 03/23/20 03/23/20 03/24/20 Range/Units 12:21 16:35 05:03 WBC (3.98-10.04) K/mm3 RBC (3.98-5.22) M/mm3 Hgb (11.2-15.7) gm/dl Hct (34.1-44.9) % MCV (79.4-94.8) fl MCH (25.6-32.2) pg MCHC (32.2-35.5) g/dl RDW Std Deviation (36.4-46.3) fL Plt Count (182-369) K/mm3 MPV (9.4-12.3) fl Neut % (Auto) (34.0-71.1) % Lymph % (Auto) (19.3-51.7) % [place] % (Auto) (4.7-12.5) % Eos % (Auto) (0.7-5.8) Baso % (Auto) (0.1-1.2) % Neut # (Auto) (1.56-6.13) K/mm3 Lymph # (Auto) (1.18-3.74) K/mm3 [place] # (Auto) (0.24-0.36) K/mm3 Eos # (Auto) (0.04-0.36) K/mm3 Baso # (Auto) (0.01-0.08) K/mm3 POC Glucose 91 69 L 80 (70-105) mg/dL Blood Type Gel Antibody Screen 03/24/20 Range/Units 06:11 WBC 9.62 (3.98-10.04) K/mm3 RBC 3.28 L (3.98-5.22) M/mm3 Hgb 9.4 L (11.2-15.7) gm/dl Hct 29.6 L (34.1-44.9) % MCV 90.2 (79.4-94.8) fl MCH 28.7 (25.6-32.2) pg MCHC 31.8 L (32.2-35.5) g/dl RDW Std Deviation 41.9 (36.4-46.3) fL Plt Count 103 L (182-369) K/mm3 MPV 12.1 (9.4-12.3) fl Neut % (Auto) 76.1 H (34.0-71.1) % Lymph % (Auto) 17.4 L (19.3-51.7) % [place] % (Auto) 5.8 (4.7-12.5) % Eos % (Auto) 0.4 L (0.7-5.8) Baso % (Auto) 0.1 (0.1-1.2) % Neut # (Auto) 7.32 H (1.56-6.13) K/mm3 Lymph # (Auto) 1.67 (1.18-3.74) K/mm3 [place] # (Auto) 0.56 H (0.24-0.36) K/mm3 Eos # (Auto) 0.04 (0.04-0.36) K/mm3 Baso # (Auto) 0.01 (0.01-0.08) K/mm3 POC Glucose (70-105) mg/dL Blood Type Gel Antibody Screen ASSESSMENT: 30-year-old female -0-0-3 s/p normal vaginal delivery of twin A and breech extraction delivery of twin B PPD #1, complicated by Di/Di twins and A1 gestational diabetes PLAN: Doing well overall. Having some pain with ambulation in the low abdomen and back. Recommend for her to continue to use ibuprofen and Tylenol for pain control Bottlefeeding with minimal difficulty. Assist as needed. Discussed with patient ways to reduce milk production. Lochia minimal. Continue to monitor for appropriate lochia. Continue routine care Fasting blood glucose this morning was 80. No evidence of impaired glucose tolerance at this time. We will plan to recheck in the morning of PPD #2. Patient's hemoglobin this morning was down to 9.4, she started at 10.4. H emoglobin drop appropriate for EBL from delivery Anticipate discharge home tomorrow Remi Lee MD 1:17 PM 03/24/2020
[2020-03-25] MEDS: Ibuprofen 600 MG Tab PO PRN (03:48)
[2020-03-25] MEDS ORDERED: Ferrous Sulfate 324 MG Tab.EC PO SCH (07:00)
[2020-03-25] MEDS: Prenatal Multivitamin with Calcium/Folic Acid/Iron Tab PO SCH (08:38)
--- NOTE | 2020-03-25 09:06 | PCM.SN.2 ---
- Free Text/Narrative Note: Post Progress Note PPD #2 Subjective: Doing well overall. Continues to be ambulating slowly but she feels like she is able to move more quickly today. Lochia minimal. Voiding without difficulty. Tolerating regular diet without nausea or vomiting. Pain controlled with oral medications. Reports that she is continuing to have some lower abdominal and pelvic pain as well as low back pain but it has improved significantly from yesterday. Bottlefeeding with minimal difficulty. Reports that she is not messer ving any milk production at this time. Objective: Vitals: Vital Signs - 24 hr 03/24/20 03/24/20 03/25/20 16:27 19:55 03:37 Temperature 37.0 C 36.7 C 36.4 C Pulse, 86 88 61 Peripheral Respiratory 15 15 15 Rate Blood Pressure 113/91 H 112/52 L 133/65 O2 Sat by Pulse 99 97 99 Oximetry 03/25/20 03:52 Temperature Pulse, Peripheral Respiratory Rate Blood Pressure 131/76 O2 Sat by Pulse Oximetry Physical Exam General: Alert and oriented, no acute distress Lungs: Clear to auscultation bilaterally Heart: Regular rate and rhythm Abdomen: Soft, minimal appropriate tenderness, non-distended, fundus midline, nontender, and at the umbilicus Extremities: No edema Laboratory Results - last 24 hr 03/23/20 03/25/20 Range/Units 08:00 05:55 POC Glucose 89 (70-105) mg/dL RPR Non-reactive (NONREACTIVE) ASSESSMENT: 30-year-old female -0-0-3 s/p normal vaginal delivery of twin A and breech extraction delivery of twin B PPD #2, complicated by Di/Di twins and A1 gestational diabetes PLAN: Doing well overall. Pain improving at this time and able to be controlled with Tylenol Bottlefeeding with minimal difficulty. Assist as needed. Discussed with patient ways to reduce milk production. Lochia minimal. Continue to monitor for appropriate lochia. Continue routine care Fasting blood glucose this morning was 89. No evidence of impaired glucose tolerance at this time. We will plan to have patient get a 2-hour glucose tolerance test at her 6-week visit to check for overt diabetes. Discharge home today Remi Lee MD 9:03 AM 03/25/2020
--- NOTE | 2020-03-25 09:15 | PCM.DCSUM1 ---
Discharge Summary - Hospital Course Free Text/Narrative:: - General Info Date of Service: 03/23/20 Mother's Due Date: 04/06/20 - Delivery Note Labor: Augmented by ARM, Induced by Oxytocin Cervical Ripening Method: Oxytocin Delivery Outcome: Livebirth (x2) Delivery Method: Spontaneous Vaginal Delivery-Twins Presentation: Vertex twin A, breech extraction delivery after arm presentation for twin B Nuchal Cord: Present (x1 for twin B, reduced after delivery of aftercoming head) Anesthesia Type: Epidural Amniotic Fluid Description: Clear (for both infants) Episiotomy Type: None Laceration: 2nd Degree (midline perineal laceration, repaired with 3-0 Vicryl) Suture type: Vicryl Suture size: 3-0 Placenta: Intact, Spontaneous Cord: 3 Vessels (x2) Estimated Blood Loss: 400 Second Stage Interventions: Reports: Pushing Effectively, Pushing, Stirrups/Leg Supports Delivery Comments (Free Text/Narrative):: Stage I: Abiola Cannon was admitted for elective induction of labor. On admission her cervix was dilated to 3.5 cm. She was GBS negative. She was started on Pitocin for induction of labor. She was given epidural seizure. She had artificial rupture membranes vaginal opening. presenting twins amniotic sac with return of large amount of clear fluid. She progressed to complete and was transferred to the operating room for delivery. Once in the operating room she began pushing. Stage II: On 03/23/2020 she had a normal vaginal delivery of twin A which was a live female infant at 19:33. Apgars of 9 & 9. Weight of 2510 g (5 lbs 8.5 oz). Length of 19.0 inches. There was no nuchal cord. Infant was delivered in GRAHAM position. The cord was doubly clamped and cut by father the . was placed on mother's abdomen initially and then taken to the warmer for additional resuscitation. After delivery of twin A, an evaluation was performed with bimanual exam as well as bedside ultrasound. Bedside ultrasound showed the was in vertex presentation. On bimanual exam the presenting part was the hand. Attempt was made to try to move the head into the presenting part but this was unsuccessful. Artificial rupture membranes was performed with return of large amount of clear fluid. Attempt was again made to re position infant into vertex presenting part but this was unsuccessful and the presenting part was a shoulder with an arm coming through the cervix. Decision was made to proceed with breech extraction delivery. The right leg and foot was able to be grasped and brought through the vaginal opening. The was then repositioned and the left leg was grasped and was able to be brought to the vaginal opening. The abdomen was then able to be delivered with the in the right sacral posterior position. The left arm delivered with the abdomen. The was then rotated in a counterclockwise manner and the right arm was able to be delivered. After delivery of the right arm the infant was elevated to extend the neck. The head was then flexed using the MauriceauSmellieVeit maneuver and the was able to be delivered. On 03/23/2020 she had a breech extraction vaginal delivery of a live male at 19:43. Apgars of 2 & 8. Weight of 3170 g (6 lbs 15.8 oz). Length of 20.0 inches. There was a single nuchal cord that was reduced after delivery of the after coming head. Infant was delivered in right sacrum posterior position. The cord was doubly clamped and cut by myself, Dr. Lee. Infant was taken to the warmer immediately after delivery for resuscitation by [employer], Dr. Gordon. Stage III: She had a spontaneous delivery of an intact placenta in Casandra presentation. Three vessel cord x2. She was given pitocin and fundal massage. She had a second-degree midline perineal laceration that was repaired with 3-0 Vicryl. Mom and babies were stable to recovery. EBL of 400 mL. Diagnosis: Stroke: No - Discharge Data Discharge Date: 03/25/20 Discharge Disposition: Home, Self-Care 01 Condition: Good - Referral to Home Health Primary Care Physician: Ez Regalado MD - Discharge Diagnosis/Problem(s) (1) 38 weeks gestation of SNOMED Code(s): 97179743 ICD Code: Z3A.38 - 38 WEEKS GESTATION OF Status: Acute Current Visit: Yes (2) Dichorionic diamniotic twin SNOMED Code(s): 972028235 ICD Code: O30.049 - TWIN , DICHORIONIC/DIAMNIOTIC, UNSP TRIMESTER Status: Acute Current Visit: Yes (3) Gestational diabetes mellitus, class A1 SNOMED Code(s): 81798978 ICD Code: O24.410 - GESTATIONAL DIABETES MELLITUS IN , DIET CONTROLLED Status: Acute Current Visit: Yes (4) Breech extraction, delivered SNOMED Code(s): 699224829 ICD Code: O64.1XX0 - OBSTRUCTED LABOR DUE TO BREECH PRESENTATION, UNSP Status: Acute Current Visit: Yes (5) Second degree perineal laceration during delivery SNOMED Code(s): 8053161 ICD Code: O70.1 - SECOND DEGREE PERINEAL LACERATION DURING DELIVERY Status: Acute Current Visit: Yes (6) Vaginal delivery SNOMED Code(s): 530264459 ICD Code: O80 - ENCOUNTER FOR FULL-TERM UNCOMPLICATED DELIVERY Status: Acute Current Visit: No - Patient Summary/Data Complications: None Consults: None Hospital Course: Abiola Cannon was admitted for elective induction of labor. On admission her cervix was dilated to 3.5 cm. She was GBS negative. She was given pitocin for induction of labor. She was given an epidural for anesthesia. She had artific ial rupture of membranes of the presenting twin amniotic sac with large amount of clear fluid. She progressed to complete and was transferred to the operating room for delivery. Once she was in the operating room she began pushing. On 03/23/2020 she had a normal vaginal delivery of twin A of a live female infant at 19:33. Apgars of 9 and 9. Weight of 2510 g (5 pounds 8.5 ounces). After delivery of twin A evaluation was performed and the presenting part was found to be the shoulder and arm. Artificial rupture membranes was performed with return of large amount of clear fluid. Attempt was made to reposition the infant with the head as the presenting part but was unsuccessful. A breech extraction was performed. Please see delivery note for full details. On 03/23/2020 she had a breech extraction vaginal delivery of twin B of a live male infant at 19:43. Apgars of 2 and 8. weight of 3170 g (6 pounds 15.8 ounces). Her course was uneventful. Her pain was well controlled and she had minimal lochia. She was ambulating, tolerating a regular diet and voiding normally. She was bottlefeeding with minimal difficulty. She was not having any milk production prior to discharge. She was afebrile and her hematocrit was 29.6 on PPD #1. She desired to be discharged home on the morning of PPD #2. Her blood type is A+. - Patient Instructions Diet: Regular Diet as Tolerated Activity: Apply Ice, As Tolerated Activity, Other: Nothing in the vagina for 6 weeks Driving: May Drive Today Showering/Bathing: May Shower Notify Provider of: Fever, Increased Pain, Swelling and Redness, Drainage, N ausea and/or Vomiting Other/Special Instructions: Please contact your physician's office if you have heavy vaginal bleeding enough to soak a pad in less than an hour for several hours. Monitor for any signs of an infection in the breasts with severe pain or redness of the breast. - Discharge Plan *PRESCRIPTION DRUG MONITORING PROGRAM REVIEWED*: Not Applicable *COPY OF PRESCRIPTION DRUG MONITORING REPORT IN PATIENT CHEY: Not Applicable Home Medications: Home Meds Vit with Ca/FA/Iron [ Plus Iron] 1 each PO DAILY tablet 06/25/17 [Rx] Famotidine [Pepcid AC] 10 mg PO DAILY 03/23/20 [History] Folic Acid 1 mg PO DAILY 03/23/20 [History] Acetaminophen [Tylenol] 650 mg PO Q6H PRN tablet 03/25/20 [Rx] Benzocaine/Menthol [Dermoplast [facility] [place]] 1 spray TOP ASDIRECTED PRN canister 03/25/20 [Rx] Docusate Sodium [Colace] 100 mg PO BID PRN cap 03/25/20 [Rx] Ferrous Sulfate 324 mg PO WITHBREAKFAST tab.ec 03/25/20 [Rx] Hydrocortisone Acetate [Anucort-HC] 25 mg RECTAL BID PRN supp 03/25/20 [Rx] Ibuprofen [Motrin] 600 mg PO Q6H PRN tablet 03/25/20 [Rx] witch Esther [Tucks] 1 pad TOP ASDIRECTED PRN pad 03/25/20 [Rx] Patient Handouts: Care of a Perineal Tear, Care After Vaginal Delivery Referrals: Remi Lee MD [Physician] - (Please follow-up in 2 weeks for routine visit or earlier as needed.) - Discharge Summary/Plan Comment DC Time >30 min.: No - Patient Data Vitals - Most Recent: Last Vital Signs Temp 36.4 C 03/25/20 03:37 Pulse 61 03/25/20 03:37 Resp 15 03/25/20 03:37 BP 131/76 03/25/20 03:52 Pulse Ox 99 03/25/20 03:37 Weight - Most Recent: 83.007 kg Lab Results - Last 24 hrs: Laboratory Results - last 24 hr 03/23/20 03/25/20 Range/Units 08:00 05:55 POC Glucose 89 (70-105) mg/dL RPR Non-reactive (NONREACTIVE) Med Orders - Current: Current Medications Acetaminophen (Tylenol) 650 mg PO Q6H PRN PRN Reason: mild pain or fever Benzocaine/Menthol (Dermoplast [facility] [place]) 0 gm TOP ASDIRECTED PRN PRN Reason: Perineal Comfort Measure Docusate Sodium (Colace) 100 mg PO BID PRN PRN Reason: Constipation Last Admin: 03/24/20 20:25 Dose: 100 mg Documented by: Ferrous Sulfate (Ferrous Sulfate) 324 mg PO WITHBREAKFAST AUBREY Last Admin: 03/25/20 08:38 Dose: 324 mg Documented by: Hydrocortisone Acetate (Anucort-Hc) 25 mg RECTAL BID PRN PRN Reason: Hemorrhoid pain Oxytocin/Lactated Ringer's (Pitocin In Lr 10 Units/1,000 Ml) 10 unit in 1,000 mls @ 100 mls/hr IV TITRATE AUBREY; Protocol Ibuprofen (Motrin) 600 mg PO Q6H PRN PRN Reason: Mild pain or fever Last Admin: 03/25/20 03:48 Dose: 600 mg Documented by: Magnesium Hydroxide (Milk Of Magnesia) 30 ml PO BEDTIME PRN PRN Reason: Constipation Prenat Multivit/Director [employer]/Iron/Folic Ac ( Plus Iron) 1 each PO DAILY AUBREY Last Admin: 03/25/20 08:38 Dose: 1 each [facility]: [facility] 1 pad TOP ASDIRECTED PRN PRN Reason: Perineal Comfort Measure Last Admin: 03/24/20 18:59 Dose: 1 applic Documented by: Discontinued Medications Benzocaine/Menthol (Dermoplast [facility] [place]) 15 gm TOP ASDIRECTED PRN PRN Reason: Pain Last Admin: 03/24/20 06:12 Dose: 1 can Documented by: Bupivacaine HCl (Sensorcaine-Mpf 0.25%) 10 ml .ROUTE .STK-MED ONE Stop: 12/22/20 00:01 Diphenhydramine HCl (Benadryl) 25 mg IVPUSH Q6H PRN PRN Reason: pruritis Ephedrine Sulfate (Ephedrine Sulfate) 5 mg IVPUSH ASDIRECTED PRN PRN Reason: Hypotension Fentanyl (Sublimaze) 100 mcg EPIDUR Q3H PRN PRN Reason: Pain Last Admin: 03/23/20 12:52 Dose: 100 mcg Documented by: Fentanyl/Bupivacaine HCl (Fentanyl/Bupivacaine/Ns 2 Mcg-0.125% 100 Ml) 100 ml EPIDUR ASDIRECTED PRN PRN Reason: Pain Last Admin: 03/23/20 12:51 Dose: 100 ml Documented by: Oxytocin/Lactated Ringer's (Pitocin In Lr 10 Units/1,000 Ml) 10 unit in 1,000 mls @ 12 mls/hr IV TITRATE AUBREY; Protocol Last Titration: 03/23/20 14:20 Dose: 5 munits/min, 30 mls/hr Documented by: Oxytocin/Lactated Ringer's (Pitocin In Lr 10 Units/1,000 Ml) 10 unit in 1,000 mls @ 500 mls/hr IV .CONTINUOUS AUBREY Lactated Ringer's (Ringers, Lactated) 1,000 mls @ 100 mls/hr IV ASDIRECTED AUBREY Last Admin: 03/23/20 13:41 Dose: 100 mls/hr Documented by: Ibuprofen (Motrin) 600 mg PO Q6H PRN PRN Reason: Pain Last Admin: 03/24/20 06:11 Dose: 600 mg Documented by: Nalbuphine HCl (Nubain) 10 mg IVPUSH Q2H PRN PRN Reason: Pain Ondansetron HCl (Zofran) 4 mg IVPUSH Q4H PRN PRN Reason: Nausea/Vomiting Sodium Chloride (Saline Flush) 10 ml FLUSH ASDIRECTED PRN PRN Reason: Keep Vein Open Witch Esther (Tucks) 1 pad TOP ASDIRECTED PRN PRN Reason: Pain Last Admin: 03/24/20 06:11 Dose: 1 jar Documented by:
== END 2020-03-25 11:10 | disposition home or self-care (01) | DRG 560 ==
LOC: JD.OB 07:07 → OBSVTOIN 19:43 → JD.OB 19:43
PROVIDERS: ADMIT Obstetrics & Gynecology; ATTEND Obstetrics & Gynecology
PROC: 10E0XZZ Delivery of Products of Conception, External Approach (ICD-10-PCS; principal; 2020-03-23)
PROC: 0KQM0ZZ Repair Perineum Muscle, Open Approach (ICD-10-PCS; 2020-03-23)
PROC: 10907ZC Drainage of Amniotic Fluid, Therapeutic from Products of Conception, Via Natural or Artificial Opening (ICD-10-PCS; 2020-03-23)
PROC: 10D07Z8 Extraction of Products of Conception, Other, Via Natural or Artificial Opening (ICD-10-PCS; 2020-03-23)
DX: O30.043 Twin pregnancy, dichorionic/diamniotic, third trimester (principal); O24.420 Gestational diabetes mellitus in childbirth, diet controlled; O32.1XX0 Maternal care for breech presentation, not applicable or unspecified; Z3A.38 38 weeks gestation of pregnancy; Z37.2 Twins, both liveborn; O70.1 Second degree perineal laceration during delivery; O69.81X0 Labor and delivery complicated by cord around neck, without compression, not applicable or unspecified
CPT/HCPCS: 36415; 51701; 59025; 59409; 82962; 85025; 86592; 86850; 86900; 86901; A9270-GY; J2590; J3010; J3490; J7120

== ENCOUNTER 2020-04-11 07:37 | Emergency (ER) | payer BC ==
[2020-04-11] MEDS ORDERED: Sodium Chloride 0.9% 10 ML Syringe FLUSH PRN (08:05)
--- NOTE | 2020-04-11 08:11 | EDM.PDOC ---
ED HPI GENERAL MEDICAL PROBLEM - General Chief Complaint: General Stated Complaint: PANIC ATTACKS, UNABLE TO EAT Time Seen by Provider: 04/11/20 08:00 Source of Information: Reports: Patient History Limitations: Reports: No Limitations - History of Present Illness INITIAL COMMENTS - FREE TEXT/NARRATIVE: The patient presents with anxiety. She had twins on March 21. Since then she has been having anxiety attacks. Her doctor put her back on lexapro last week. That has not helped yet. She says things with her children are going good. She has plenty of help. She will still get the anxiety attacks. She has some chest tightness with it and gets nauseated and has diarrhea. She has no appetite. She will also get headaches with some blurry vision at times. She has no abdominal pain. She does not think she is again. Onset: Gradual Duration: Week(s): Improves with: Reports: None Worsens with: Reports: None Associated Symptoms: Reports: Chest Pain, Headaches, Nausea/Vomiting. Denies: Cough, Fever/Chills, Shortness of Breath Chest Pain Score (Numeric/FACES): 1 - Related Data Allergies Allergy/AdvReac Type Severity Reaction Status Date / Time No Known Allergies Allergy Verified 04/11/20 07:48 Home Meds: Home Meds Acetaminophen [Tylenol] 650 mg PO Q6H PRN tablet 03/25/20 [Rx] Ibuprofen [Motrin] 600 mg PO Q6H PRN tablet 03/25/20 [Rx] Escitalopram Oxalate [Lexapro] 10 mg PO DAILY 04/11/20 [History] Mecobalamin [B12 Active] 1 tab PO DAILY 04/11/20 [History] Past Medical History - Past Health History Medical/Surgical History: Denies Medical/Surgical History Cardiovascular History: Reports: None, Other (See Below) Respiratory History: Reports: None Gastrointestinal History: Reports: G[employer] SERVICES MANAGER History: Reports: Other (See Below) 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 Musculoskeletal History: Reports: None Neurological History: Reports: None Psychiatric History: Reports: Anxiety, Other (See Below) Other Psychiatric History: hx pp depression Endocrine/Metabolic History: Reports: Diabetes, Gestational Hematologic History: Reports: None Immunologic History: Reports: None Oncologic (Cancer) History: Reports: None Dermatologic History: Reports: None - Infectious Disease History Infectious Disease History: Reports: Novel Coronavirus - Past Surgical History Head Surgeries/Procedures: Reports: None HEENT Surgical History: Reports: Oral Surgery Other HEENT Surgeries/Procedures: wisdom teeth GI Surgical History: Reports: None Neurological Surgical History: Reports: None Musculoskeletal Surgical History: Reports: None - History Comment History Comment: unisom for sleep and multivit Social & Family History - Family History Family Medical History: No Pertinent Family History - Tobacco Use Tobacco Use Status *Q: Never Tobacco User - Caffeine Use Caffeine Use: Reports: Coffee - Recreational Drug Use Recreational Drug Use: No - Living Situation & Occupation Living situation: Reports: , with Spouse, with Family ED ROS GENERAL - Review of Systems Review Of Systems: See Below Constitutional: Reports: No Symptoms HEENT: Reports: No Symptoms Respiratory: Reports: No Symptoms Cardiovascular: Reports: Chest Pain Endocrine: Reports: No Symptoms GI/Abdominal: Reports: Diarrhea, Nausea, Vomiting. Denies: Abdominal Pain : Reports: No Symptoms Musculoskeletal: Reports: No Symptoms ED EXAM, GENERAL - Physical Exam Exam: See Below Exam Limited By: No Limitations General Appearance: Alert, No Apparent Distress Ears: Normal External Exam Nose: Normal Inspection Head: Atraumatic, Normocephalic Neck: Normal Inspection Respiratory/Chest: No Respiratory Distress, Lungs Clear, Normal Breath Sounds Cardiovascular: Regular Rate, Rhythm, No Edema, No Murmur GI/Abdominal: Soft, Non-Tender, No Organomegaly, No Mass Back Exam: Normal Inspection Extremities: Normal Inspection Course - Vital Signs Last Recorded V/S: Last Vital Signs Temp 96.8 F L 04/11/20 07:52 Pulse 75 04/11/20 07:52 Resp 18 04/11/20 07:52 BP 110/71 04/11/20 07:52 Pulse Ox 95 04/11/20 07:52 - Orders/Labs/Meds Orders: Active Orders 24 hr Category Date Time Status Cardiac Monitoring [RC] . DIRECTED Care 04/11/20 08:05 Active Peripheral IV Care [RC] . DIRECTED Care 04/11/20 08:06 Active UA W/MICROSCOPIC [URIN] Stat Lab 04/11/20 08:05 Stop Req Sodium Chloride 0.9% [Normal Saline] 1,000 ml Med 04/11/20 08:15 Active IV .BOLUS Sodium Chloride 0.9% [Saline Flush] Med 04/11/20 08:05 Active 10 ml FLUSH ASDIRECTED PRN Peripheral IV Insertion Adult [OM.PC] Stat Oth 04/11/20 08:05 Ordered Medication Orders Sodium Chloride (Normal Saline) 1,000 mls @ 1,000 mls/hr IV .BOLUS AUBREY Last Admin: 04/11/20 08:16 Dose: 1,000 mls/hr Documented by: NAKITA Sodium Chloride (Saline Flush) 10 ml FLUSH ASDIRECTED PRN PRN Reason: Keep Vein Open Last Admin: 04/11/20 08:17 Dose: 10 ml Documented by: NAKITA Labs: Laboratory Tests 04/11/20 04/11/20 Range/Units 08:15 08:15 WBC 4.44 (3.98-10.04) K/mm3 RBC 4.46 (3.98-5.22) M/mm3 Hgb 13.0 D (11.2-15.7) gm/dl Hct 39.7 (34.1-44.9) % MCV 89.0 (79.4-94.8) fl MCH 29.1 (25.6-32.2) pg MCHC 32.7 (32.2-35.5) g/dl RDW Std Deviation 42.2 (36.4-46.3) fL Plt Count 274 D (182-369) K/mm3 MPV 10.8 (9.4-12.3) fl Neut % (Auto) 55.8 (34.0-71.1) % Lymph % (Auto) 36.7 (19.3-51.7) % Polk % (Auto) 5.4 (4.7-12.5) % Eos % (Auto) 1.4 (0.7-5.8) Baso % (Auto) 0.5 (0.1-1.2) % Neut # (Auto) 2.48 (1.56-6.13) K/mm3 Lymph # (Auto) 1.63 (1.18-3.74) K/mm3 Polk # (Auto) 0.24 (0.24-0.36) K/mm3 Eos # (Auto) 0.06 (0.04-0.36) K/mm3 Baso # (Auto) 0.02 (0.01-0.08) K/mm3 Sodium 142 (136-145) mEq/L Potassium 4.2 (3.5-5.1) mEq/L Chloride 104 (98-107) mEq/L Carbon Dioxide 26 (21-32) mEq/L Anion Gap 16.2 H (5-15) BUN 17 (7-18) mg/dL Creatinine 1.0 (0.55-1.02) mg/dL Est Cr Clr Drug Dosing 79.99 mL/min Estimated GFR (MDRD) > 60 (>60) mL/min BUN/Creatinine Ratio 17.0 (14-18) Glucose 95 (74-106) mg/dL Calcium 8.9 (8.5-10.1) mg/dL Magnesium 2.2 (1.8-2.4) mg/dl Total Bilirubin 1.3 H (0.2-1.0) mg/dL AST 25 (15-37) U/L ALT 36 (14-59) U/L Alkaline Phosphatase 97 (46-116) U/L Total Protein 7.1 (6.4-8.2) g/dl Albumin 3.5 (3.4-5.0) g/dl Globulin 3.6 gm/dL Albumin/Globulin Ratio 1.0 (1-2) Lipase 82 (73-393) U/L Meds: Medications Generic Name Dose Route Start Last Admin Trade Name Freq PRN Reason Stop Dose Admin Sodium Chloride 1,000 mls @ 1,000 mls/hr 04/11/20 08:15 04/11/20 08:16 Normal Saline IV 1,000 mls/hr .BOLUS AUBREY Administration Sodium Chloride 10 ml 04/11/20 08:05 04/11/20 08:17 Saline Flush FLUSH 10 ml ASDIRECTED PRN Administration Keep Vein Open - Re-Assessments/Exams Free Text/Narrative Re-Assessment/Exam: 04/11/20 08:11 I have ordered an IV NS 1L bolus, labs and UA. 04/11/20 09:11 Her labs look good. I will give her some ativan to help until the lexapro starts working. I will discharge her home. Departure - Departure Time of Disposition: 09:15 Disposition: Home, Self-Care 01 Condition: Good Clinical Impression: Anxiety - Discharge Information *PRESCRIPTION DRUG MONITORING PROGRAM REVIEWED*: Not Applicable *COPY OF PRESCRIPTION DRUG MONITORING REPORT IN PATIENT CHEY: Not Applicable Referrals: Ez Regalado MD [Primary Care Provider] - Forms: ED Department Discharge Additional Instructions: Keep taking the lexapro. It takes a couple weeks for that to start working. In the mean time, try ativan every 8 hours as needed for anxiety. That is a te mporary fix until the lexapro starts working. Follow up with your doctor within a couple weeks and please return if you are worse. Sepsis Event Note (ED) - Evaluation Sepsis Screening Result: No Definite Risk - Focused Exam Vital Signs: Vital Signs Temp Pulse Resp BP Pulse Ox 04/11/20 07:52 96.8 F L 75 18 110/71 95 - My Orders Last 24 Hours: My Active Orders 04/11/20 08:05 Cardiac Monitoring [RC] . DIRECTED UA W/MICROSCOPIC [URIN] Stat Sodium Chloride 0.9% [Saline Flush] 10 ml FLUSH ASDIRECTED PRN Peripheral IV Insertion Adult [OM.PC] Stat 04/11/20 08:06 Peripheral IV Care [RC] . DIRECTED 04/11/20 08:15 Sodium Chloride 0.9% [Normal Saline] 1,000 ml IV .BOLUS - Assessment/Plan Last 24 Hours: My Active Orders 04/11/20 08:05 Cardiac Monitoring [RC] . DIRECTED UA W/MICROSCOPIC [URIN] Stat Sodium Chloride 0.9% [Saline Flush] 10 ml FLUSH ASDIRECTED PRN Peripheral IV Insertion Adult [OM.PC] Stat 04/11/20 08:06 Peripheral IV Care [RC] . DIRECTED 04/11/20 08:15 Sodium Chloride 0.9% [Normal Saline] 1,000 ml IV .BOLUS
[2020-04-11] MEDS ORDERED: Sodium Chloride 0.9% 1,000 ML IV SCH (08:15)
== END 2020-04-11 09:21 | disposition home or self-care (01) ==
LOC: JD.ED 07:37
DX: O99.345 Other mental disorders complicating the puerperium (principal); F41.9 Anxiety disorder, unspecified; Z79.899 Other long term (current) drug therapy
CPT/HCPCS: 36415; 80053; 83690; 83735; 85025; 99284; J7030; 99283

== ENCOUNTER 2021-06-01 06:40 | Emergency (ER) | payer BC | END 2021-06-01 08:41 | disposition home or self-care (01) | LOC: JD.ED 06:40 | DX: S93.401A Sprain of unspecified ligament of right ankle, initial encounter (principal); Z86.16 Personal history of COVID-19; W01.0XXA Fall on same level from slipping, tripping and stumbling without subsequent striking against object, initial encounter; Y92.009 Unspecified place in unspecified non-institutional (private) residence as the place of occurrence of the external cause | CPT/HCPCS: 73610-26-RT; 73610-RT; 99283; 99283-25 ==